=== PATIENT | female | born 1955 | race Caucasian/White ===

== ENCOUNTER 2016-06-25 06:07 | Day surgery (SDC) | payer OTHER ==
[2016-06-25] MEDS ORDERED: LIDOCAINE 1% 5 ML SDV ONE (06:41)
[2016-06-25] MEDS ORDERED: BUPIVACAINE 0.5% 30 ML SDV ONE (06:55)
[2016-06-25] MEDS ORDERED: LIDOCAINE 1% 30 ML SDV ONE (07:13)
[2016-06-25] MEDS ORDERED: MIDAZOLAM 2 MG/2 ML VIAL ONE (07:20)
[2016-06-25] MEDS ORDERED: LIDOCAINE 1% 5 ML SDV ID PRN (07:21)
[2016-06-25] MEDS ORDERED: LR 1,000 ML IV ONE (07:21)
[2016-06-25] MEDS ORDERED: fentaNYL 100 MCG/2 ML INJ ONE (07:30)
[2016-06-25] MEDS ORDERED: PROPOFOL/EMULSION 500 MG/50 ML BOTTLE IV ONE (07:31)
--- NOTE | 2016-06-25 09:10 | GOP ---
DATE OF OPERATION: 06/25/2016 SURGEON: Bora Meza MD PREOPERATIVE DIAGNOSIS: Left carpal tunnel syndrome. POSTOPERATIVE DIAGNOSIS: Left carpal tunnel syndrome. PROPOSED OPERATION: Open left carpal tunnel release. FINDINGS: INDICATIONS: Very significant symptoms of numbness, tingling in the median distribution left hand. Some weakness and decreased coordination. EMG and nerve conduction study showed severe carpal tunnel syndrome on the left side. It was felt that surgical release at this point was a good option for her. DESCRIPTION OF PROCEDURE: Under local infiltration block with 0.5% plain Marcaine and with monitored anesthesia care and sedation by anesthesiology, the patient's left arm was prepped and draped in the usual fashion. Arm tourniquet applied at 250 mmHg. Longitudinal incision was made from the mid palm to the heel of the palm. Skin and subcutaneous tissue was reflected and one sensory branch of the palmar cutaneous nerve was identified and protected. Palmar fascia and transverse carpal ligament were released longitudinally and distal forearm fascia was released by passing a Metzenbaum scissors under the skin at the distal forearm after first bringing up overlying and underlying structures. The median nerve was erythematous and hour glassed under the transverse carpal ligament. The ligament was notably thickened. Once the release had been performed, distal branches were inspected. There was no entrapment there, and proximally in the forearm there was no evidence of pathology. Wound was irrigated with 0.5% plain Marcaine. Skin closed with horizontal mattress sutures of 5-0 Prolene. A bulky soft pressure dressing was applied followed by power base fiberglass splint, held in place with an Yaya bandage. She tolerated the procedure well. There were no complications. Tourniquet deflation resulted in immediate pinking of the digits. She was brought to the recovery area where detailed postoperative instructions were given prior to discharge. A prescription for Percocet and Keflex was provided. She takes Percocet on a regular basis and this was some additional Percocet for increased pain from postoperative symptoms. Followup arrangements in the office for about a week postop for dressing and suture removal and remobilization exercises with a Velcro strap splint to be worn at night for a month and as need be during the day. /[id number]/MODL MTDD
== END 2016-06-25 10:35 | disposition home or self-care (01) ==
LOC: FSGY 06:07
PROVIDERS: ATTEND Specialist
PROC: 01N50ZZ Release Median Nerve, Open Approach (ICD-10-PCS; principal; 2016-06-25 07:30)
DX: G56.02 Carpal tunnel syndrome, left upper limb (principal); K21.9 Gastro-esophageal reflux disease without esophagitis
CPT/HCPCS: J2250; J2704; J3010

== ENCOUNTER → 2016-09-17 | Outpatient (CLI) | payer OTHER | LOC: FIMAGING 10:13 | PROVIDERS: ATTEND Internal Medicine | DX: D25.1 Intramural leiomyoma of uterus (principal); D25.2 Subserosal leiomyoma of uterus; N95.0 Postmenopausal bleeding ==

== ENCOUNTER → 2016-10-05 | Outpatient (CLI) | payer OTHER | LOC: FIMAGING 14:54 | PROVIDERS: ATTEND Nurse Practitioner | DX: Z98.1 Arthrodesis status (principal); M54.2 Cervicalgia; Z09 Encounter for follow-up examination after completed treatment for conditions other than malignant neoplasm ==

== ENCOUNTER → 2016-10-06 | Outpatient (CLI) | payer OTHER | LOC: FLAB 11:58 → EDSTATUS 12:02 → FIMAGING 12:05 | PROVIDERS: ATTEND Nurse Practitioner | DX: M51.34 Other intervertebral disc degeneration, thoracic region (principal); Z98.1 Arthrodesis status ==

== ENCOUNTER → 2016-11-23 | Outpatient (CLI) | payer OTHER | LOC: FIMAGING 15:09 | PROVIDERS: ATTEND Internal Medicine | DX: Z12.31 Encounter for screening mammogram for malignant neoplasm of breast (principal); Z09 Encounter for follow-up examination after completed treatment for conditions other than malignant neoplasm | CPT/HCPCS: G0202 ==

== ENCOUNTER → 2017-04-06 | Outpatient (CLI) | payer OTHER | LOC: FLAB 14:38 | PROVIDERS: ATTEND Nurse Practitioner | DX: Z09 Encounter for follow-up examination after completed treatment for conditions other than malignant neoplasm (principal); Z98.1 Arthrodesis status; M51.34 Other intervertebral disc degeneration, thoracic region ==

== ENCOUNTER → 2017-05-11 | Outpatient (CLI) | payer OTHER | LOC: FIMAGING 19:28 | PROVIDERS: ATTEND Neurological Surgery | DX: M54.2 Cervicalgia (principal); M40.12 Other secondary kyphosis, cervical region; M43.22 Fusion of spine, cervical region ==

== ENCOUNTER → 2017-06-09 | Outpatient (CLI) | payer OTHER | LOC: FIMAGING 13:55 | PROVIDERS: ATTEND Physician Assistant | DX: M48.02 Spinal stenosis, cervical region (principal); M46.92 Unspecified inflammatory spondylopathy, cervical region ==

== ENCOUNTER 2017-10-27 17:28 | Emergency (ER) | payer OTHER ==
[2017-10-27] MEDS ORDERED: ACETAMINOPHEN 500 MG TAB PO ONE (18:16)
[2017-10-27] MEDS ORDERED: DIAZEPAM 5 MG TAB PO ONE (18:16)
--- NOTE | 2017-10-27 19:57 | EDPHY ---
H & P Time Seen by Provider: 10/27/17 18:07 HPI/ROS: This patient was trying out air mattresses 5 days ago and when she pushed up off the floor she developed abrupt onset of biceps pain that radiated up to the shoulder. This was sharp in nature moderate intensity and thereafter she had mild to moderate pain at the biceps and right shoulder area. 3 days prior to arrival for getting that she had injured the arm she lifted a cooler full of sodas and felt abrupt worsening in a tearing feeling in the same area-right biceps. Today without any recurrent injury she noted significant swelling, ecchymosis and increase in pain to 6 or 7/10 to the right biceps region radiating to the right shoulder and into the right trapezium. At 1:00 p.m. She took an oxycodone which improved the pain to 5/10. Concerned about potential DVT or other complication she came in for evaluation. She arrived here by private vehicle with a friend. ROS: Neuro: Patient has baseline paresthesias to the right arm that she attributes to her cervical spine disease that is baseline unchanged. No new neuro symptoms knee affected upper extremity. Musculoskeletal: No new midline neck pain. Pulmonary: No complaints-no shortness of breath 5 point ROS is otherwise negative. 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 General: No acute distress HEENT: Atraumatic. Eyes: Pupils equal and react to light. Extraocular motions are intact. Lungs: No respiratory distress. Cardiac: Brisk capillary refill is intact throughout. Pulses are 2+ and symmetric in the affected extremity. Skin: No rash or pallor. Extremities: Atraumatic normal except for right upper extremity Right upper extremity: Patient has moderate ecchymosis and focal swelling to the mid biceps area. He has mild weakness to flexion of the right arm and increase in pain when she does so. She also has tenderness and mild spasm to the right trapezius muscle. No focal tenderness at the right shoulder limitation range of motion of the shoulder. Neuro: Alert and oriented x3 with no sensorimotor deficits in the affected upper extremity. Initial differential diagnosis: Biceps tendon tear, biceps muscle tear, post traumatic hematoma, posttraumatic DVT Constitutional: Initial Vital Signs Temperature (C) 37.1 C 10/27/17 17:35 Heart Rate 74 10/27/17 17:35 Respiratory Rate 18 10/27/17 17:35 Blood Pressure 179/88 H 10/27/17 17:35 O2 Sat (%) 96 10/27/17 17:35 O2 Delivery Mode Room Air Allergies/Adverse Reactions: cefaclor [From Ceclor] Allergy (Intermediate, Verified 10/27/17 17:39) Hives nalbuphine HCl [From Nubain] Allergy (Intermediate, Verified 10/27/17 17:39) Other-Enter Comments promethazine HCl [From Phenergan] Allergy (Intermediate, Verified 10/27/17 17:39 ) Anxiety Home Medications: Medication Instructions Recorded Fluoxetine HCl [Prozac 40 mg] 40 mg PO DAILY 01/09/15 oxyCODONE IR [Oxycodone Ir (*)] 5 mg PO TID PRN 02/21/15 Estradiol [Vivelle-Dot 0.025MG (*)] 0.025 mg TD SA@08 03/16/15 Aygestin 1 patch 08/23/15 Cyanocobalamin 1 unit IM 08/23/15 FOLIC ACID 400 mg 06/05/16 GABAPENTIN 1 tab TID 06/05/16 Pantoprazole Sodium 1 tab DAILY 06/05/16 Meloxicam 10/27/17 Methocarbamol [Robaxin 750 mg (*)] 750 - 1,500 mg PO QID PRN #30 tab 10/27/17 VENLAFAXINE HCL 10/27/17 MDM/Departure - MDM Imaging Results: Imaging Impressions Extremity Venous Study 10/27/17 18:17 Impression: No evidence of vein thrombosis in the right arm. Results called and discussed with MORENITA LUCAS M.D. on 10/27/2017 at 19:48. Imaging: Discussed imaging studies w/ call or contact centre operator Radiologist Medications Given: Discontinued Medications Acetaminophen (Tylenol) 1,000 mg PO EDNOW ONE Stop: 10/27/17 18:17 Last Admin: 10/27/17 18:25 Dose: 1,000 mg Diazepam (Valium) 5 mg PO EDNOW ONE Stop: 10/27/17 18:17 Last Admin: 10/27/17 18:26 Dose: 5 mg ED Course/Re-evaluation: Tylenol, Valium with pain diminish to 3 or 4/10. Yaya wrap I counseled patient regarding ultrasound negative for DVT and counseled regarding biceps tendon/muscle tear. Discussion: This patient likely had a partial biceps tear 5 days ago that she completed 3 days ago while lifting another object. Today she developed more swelling and pain likely from hematoma. We ruled out DVT. She is neurovascularly intact without other red flag findings. I counseled regarding her injury in some detail. We placed an Yaya wrap. Will have her follow up with Orthopedics and limit lifting in the meantime. She will use ice, ibuprofen , Tylenol and methocarbamol as needed for pain as well as her current script that she has for oxycodone for her chronic pain. She understands the need to return emergency department should she develop any significant worsening despite the treatment plan. - Depart Disposition: Home, Routine, Self-Care Clinical Impression: Tear of right biceps muscle Qualifiers: Encounter type: initial encounter Qualified Code(s): S46.211A - Strain of muscle, fascia and tendon of other parts of biceps, right arm, initial encounter Condition: Good Instructions: Tendon Rupture (ED) Additional Instructions: Diagnosis: Biceps tendon and/or muscle tear right arm You had an ultrasound today that ruled out deep venous thrombosis. Plan: Ice 20 min at a time at least 3 times a day but preferably more until the swelling is diminished. Yaya wrap when up and about No lifting with the right arm Call the orthopedic physician tomorrow to arrange follow-up appointment for early next week. Continue ibuprofen, methocarbamol and Tylenol for pain control. Return for any significant worsening despite the treatment plan. Stand Alone Forms: Work Excuse Prescriptions: Methocarbamol [Robaxin 750 mg (*)] 750 - 1,500 mg PO QID PRN #30 tab PRN Reason: Muscle Spasms Referrals: Oumou Beauchamp MD [Primary Care Provider] - As per Instructions Refugio Don MD [Medical Doctor] - As per Instructions
[2017-10-27 20:06] VITALS: BP 175/94
== END 2017-10-27 20:06 | disposition home or self-care (01) ==
LOC: CED 17:28
DX: S46.211A Strain of muscle, fascia and tendon of other parts of biceps, right arm, initial encounter (principal); X50.0XXA Overexertion from strenuous movement or load, initial encounter
CPT/HCPCS: 93971-PO

== ENCOUNTER → 2017-11-09 | Outpatient (CLI) | payer OTHER | LOC: FIMAGING 09:35 | PROVIDERS: ATTEND Physician Assistant | DX: M66.821 Spontaneous rupture of other tendons, right upper arm (principal); M75.81 Other shoulder lesions, right shoulder; M25.511 Pain in right shoulder ==

== ENCOUNTER → 2018-01-13 | Outpatient (CLI) | payer OTHER | LOC: CIMAGING 09:47 | PROVIDERS: ATTEND Internal Medicine | DX: Z12.31 Encounter for screening mammogram for malignant neoplasm of breast (principal) ==

== ENCOUNTER 2018-03-18 13:17 | Inpatient (IN) | payer OTHER ==
[2018-03-18] MEDS ORDERED: methylPREDNISolone SOD SUCC 125 MG/2 ML VIAL ONE (14:04)
[2018-03-18] MEDS ORDERED: fentaNYL 100 MCG/2 ML INJ ONE (14:04)
[2018-03-18] MEDS ORDERED: KETOROLAC 30 MG/1 ML SDV ONE (14:04)
--- NOTE | 2018-03-18 14:06 | EDPHY ---
H & P Time Seen by Provider: 03/18/18 13:30 HPI/ROS: CHIEF COMPLAINT: Neck pain HISTORY OF PRESENT ILLNESS: Patient is a 62-year-old female who presents to the emergency department with neck pain radiating down her right arm. The patient states she fell Wednesday, landing forward on her knees and hands. She felt a slight jar in her low back with the fall. She denied any neck pain. She did not strike her head or lose consciousness. She subsequently developed right lateral neck pain extending down her right arm. She describes it as a burning sensation. Patient has previously had a C3 through C6 fusion. She has seen Dr. Whiting for ongoing right arm tingling. He states that disc space below the fusion is having some compression. The patient has no low back pain. No incontinence of urine or stool. REVIEW OF SYSTEMS: 10 systems were reveiwed and are negative with the exception of the elements mentioned in the history of present illness. Past Medical/Surgical History: Includes back pain, neck pain, hiatal hernia, H pylori Past surgical history: Cholecystectomy, orthopedic surgery, cervical fusion, thoracic fusion Smoking Status: Never smoked Physical Exam: Vitals noted GENERAL: Well-appearing, in no acute distress, alert. HEENT: Eyes normal to inspection, normal pharynx, no signs of dehydration. NECK: Normal, supple. No tenderness to palpation. No bruit. RESPIRATORY: Clear to auscultation bilaterally, no rales, rhonchi or wheezing. CVS: Regular rate and rhythm, no rubs, murmurs, or gallops. ABDOMEN: Soft, nontender, nondistended, no organomegaly. BACK: Normal to inspection, no CVA tenderness. SKIN: Normal color, no rash, warm, dry. No pallor. EXTREMITIES: No pedal edema, no calf tenderness, no Homans sign or cords, no joint swelling. NEURO/PSYCH: Alert and oriented, normal mood and affect, normal motor sensory exam. No obvious cranial nerve deficit. Constitutional: Initial Vital Signs Temperature (C) 37.1 C 03/18/18 13:30 Heart Rate 101 H 03/18/18 13:30 Respiratory Rate 18 03/18/18 13:30 Blood Pressure 187/87 H 03/18/18 13:30 O2 Sat (%) 95 03/18/18 13:30 O2 Delivery Mode Room Air Allergies/Adverse Reactions: cefaclor [From [facility]] Allergy (Intermediate, Verified 10/27/17 17:39) Hives nalbuphine HCl [From Nubain] Allergy (Intermediate, Verified 10/27/17 17:39) Other-Enter Comments promethazine HCl [From Phenergan] Allergy (Intermediate, Verified 10/27/17 17:39 ) Anxiety Home Medications: Medication Instructions Recorded Fluoxetine HCl [Prozac 40 mg] 40 mg PO DAILY 01/09/15 oxyCODONE IR [Oxycodone Ir (*)] 5 mg PO TID PRN 02/21/15 Estradiol [Vivelle-Dot 0.025MG (*)] 0.025 mg TD SA@08 03/16/15 Aygestin 1 patch 08/23/15 Cyanocobalamin 1 unit IM 08/23/15 GABAPENTIN 1 tab TID 06/05/16 Pantoprazole Sodium 1 tab DAILY 06/05/16 Meloxicam 10/27/17 Methocarbamol [Robaxin 750 mg (*)] 750 - 1,500 mg PO QID PRN #30 tab 10/27/17 VENLAFAXINE HCL 10/27/17 oxyCODONE/APAP 5/325 [Percocet 1 - 2 tab PO Q4PRN PRN #11 tab 03/18/18 5/325 (*)] predniSONE 20 mg PO DAILY 4 Days tab 03/18/18 Medical Decision Making ED Course/Re-evaluation: In the emergency department I discussed possible etiologies with the patient. I answered all her questions. Patient has ongoing neck pain radiating down her right arm. MRI of her cervical spine was ordered. Patient was given Toradol 30 mg IV for pain, fentanyl 25 mcg IV for pain and Solu-Medrol 125 mg IV for pain. 1445: The patient is complaining of ongoing right lateral neck and right arm pain. The patient was given fentanyl 100 mcg IV. 1500: The patient is signed out to Dr. Singh at change of shift. The patient is awaiting MRI results. Differential Diagnosis: My differential includes but is not limited to disc herniation, cervical strain , mass, malignancy, hematoma, CVA, dissection - Data Points Medications Given: Discontinued Medications Fentanyl (Sublimaze) 25 mcg IVP EDNOW ONE Stop: 03/18/18 14:10 Last Admin: 03/18/18 14:26 Dose: 25 mcg Sodium Chloride (Ns) 1,000 mls @ 3,000 mls/hr IV ONCE ONE Stop: 03/18/18 14:28 Last Admin: 03/18/18 14:14 Dose: 1,000 mls Ketorolac Tromethamine (Toradol) 30 mg IVP EDNOW ONE Stop: 03/18/18 14:11 Last Admin: 03/18/18 14:20 Dose: 30 mg Methylprednisolone Sodium Succinate (Solu-Medrol) 125 mg IVP EDNOW ONE Stop: 03/18/18 14:11 Last Admin: 03/18/18 14:26 Dose: 125 mg Ondansetron HCl (Zofran) 4 mg IVP EDNOW ONE Stop: 03/18/18 14:10 Last Admin: 03/18/18 14:27 Dose: 4 mg Departure - Departure Disposition: Home, Routine, Self-Care Clinical Impression: Neck pain Condition: Good Instructions: Acute Neck Pain (ED) Additional Instructions: Return with increasing pain, weakness, numbness or any other concerns. Take your entire course of steroid. Referrals: Oumou Beauchamp MD [Primary Care Provider] - 5-7 days, call for appt. Laurent Whiting MD [Medical Doctor] - 5-7 days, call for appt. Prescriptions: oxyCODONE/APAP 5/325 [Percocet 5/325 (*)] 1 - 2 tab PO Q4PRN PRN #11 tab PRN Reason: For Moderate To Severe Pain predniSONE 20 mg PO DAILY 4 Days tab
[2018-03-18] MEDS ORDERED: ONDANSETRON 4 MG/2 ML VIAL ONE (14:07)
[2018-03-18] MEDS ORDERED: fentaNYL 100 MCG/2 ML INJ IVP ONE ×3 (14:09→16:11)
[2018-03-18] MEDS ORDERED: ONDANSETRON 4 MG/2 ML VIAL IVP ONE (14:09)
[2018-03-18] MEDS ORDERED: NS 1,000 ML IV ONE ×2 (14:09→16:39)
[2018-03-18] MEDS ORDERED: KETOROLAC 30 MG/1 ML SDV IVP ONE (14:10)
[2018-03-18] MEDS ORDERED: methylPREDNISolone SOD SUCC 125 MG/2 ML VIAL IVP ONE (14:10)
[2018-03-18] MEDS ORDERED: HYDROmorphONE/DILAUDID 2 MG/ML INJ IVP ONE (16:39)
[2018-03-18 16:45] LABS: PLATELET COUNT 250 10^3/uL (150-400)
[2018-03-18] MEDS ORDERED: HYDROmorphONE/DILAUDID 1 MG/ML INJ ONE (17:52)
[2018-03-18] MEDS ORDERED: HYDROmorphONE/DILAUDID 1 MG/ML INJ IVP ONE (17:54)
--- NOTE | 2018-03-18 18:06 | PDGENHP ---
History and Physical History and Physical: CC: radicular neck pain HISTORY: This patient comes into the ER today with right arm radicular pain including neuropathic pains that are acute over the last 3-4 days and worsening significantly today. She has a long history of spine disease with 2 prior lumbar surgeries and effusion in the upper cervical spine. She has had ongoing neck pain and has been following with Dr. Ky Whiting her surgeon who has told her she will likely need future fusion surgery in the lower cervical spine. Notably just recently she had a facet joint injection on the left cervical spine for some localized pain there. She also tells me that 2 weeks ago she tripped and fell landing on her left ribcage and has some mildly sore ribs there. 6 days ago she tripped again on an uneven curb and landed on her outstretched hands in front of her, wrenching her neck a bit. She has had some tight muscles in the upper thoracic spine area since then. And now the onset of radicular pain comes from the lower neck area across the upper trapezius and lateral shoulder down the back of her arm into her mid hand area. She has burning tingling and itching sensations involved in this pain. If she turns her head to the right and looks down the pain is exacerbated. She has noticed no weakness and no actual numb areas. There is no fever or fever like symptoms. She has no trouble with bowel or bladder function, is eating well. ROS: She recently had a cough that has resolved completely with no dyspnea or fevers. 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 I have reviewed the list and ordered appropriate medicines. 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, no focal weakness IV site: looks normal LABORATORY DATA: unremarkable cbc and metabolic panel RADIOLOGY STUDIES: I reviewed images of MRI cspine done tonight in ER, shows new severe disc disease with C6-7 severe canal stenosis and foramenal stenosis 12 LEAD EKG: ASSESSMENT: * Severe acute radicular Cervical pain with new disc disease on MRI consistent with the anatomy of her pain * Multiple prior spine surgeries including an upper cervical fusion * Currently no loss of sensation or strength * Hypertension on admission to the ER is likely due to pain and anxiety, it is improving spontaneously and will need close follow-up here It may be that she is having muscle spasm related to her recent falls that is contributing to some postural changes of the spine increasing nerve entrapment and symptoms. However she does have significant disc disease. She is hoping to avoid surgery. Will plan on starting with some oral steroids, muscle relaxers, and analgesics along with anti-inflammatories and see how much progress he makes. Could consider an epidural steroid injection. If she does not progress she can always consider a surgery but there is no urgent indication for surgery at this moment. Dr. Tatum from the neurosurgery service has been notified of the patient's admission PLANS: * Inpatient admission as I expect it will be more than 48 hr before we get adequate pain control in this patient * Oral steroids have been started in the ER, will use nonsteroidals, muscle relaxers, analgesics as well * Consider epidural steroid injection of the next couple of days if she does not have significant improvement * Neurosurgery consult is requested by the ER staff * Continue her other usual medications * Follow blood pressures closely and consider additional treatment if necessary I have reviewed the patient's case in detail with Dr. Anson Rooney I have reviewed the patient's past medical records as part of this assessment, including prior hospital admission records
[2018-03-18] MEDS ORDERED: ONDANSETRON 4 MG/2 ML VIAL IVP PRN (18:13)
--- NOTE | 2018-03-18 20:00 | GCON ---
DATE OF CONSULTATION: 03/18/2018 Patient was seen and evaluated at approximately 6:30 p.m. in the ER at [facility]. HPI: The patient is a 62-year-old woman who was a patient of my partner, Dr. Whiting. In 2013, he di d a C4 corpectomy, C5-6 ACDF, and C4-C6 anterior spinal fusion. Since that time, she has done fairly well, but has had continued neck pain. Most recently in April, she had a CT scan, which shows a p seudoarthrosis at C5-6 with some loosening of the C6 screws. She also has a bit of spondylolisthesis at the adjacent level of C6-7. She notes that she has had numbness and tingling in the right arm in a C8 distribution for about the past 3 months. She was visiting her family in [place] and had a fall earlier this week and now has had severe pain in the neck, trapezius, and radiating down the lateral aspect of the right arm to the dorsal forearm and to the 4th and 5th digits. This burning pain has b een severe enough that it caused her to come to the emergency department today. She did not have any notable neurologic deficits, although she states that she has been dropping things for the past yolanda ral months with both hands and has had difficulty with her balance, has been tripping over things. A new MRI was done here, which again shows spondylolisthesis at C6-7 with severe adjacent segment dise ase and severe canal stenosis with bilateral foraminal stenosis. REVIEW OF SYSTEMS: A 10-point review of systems is negative other than that described above in the H PI. PAST MEDICAL HISTORY: 1. Coronary artery disease by angiography in 2011. 2. Osteoarthritis. 3. Vitamin B12 deficiency. 4. Anxiety disorder. 5. Depression. 6. Hypertension. 7. Peripheral neuropathy. 8. Previous cervical spine fusion. FAMILY HISTORY: The family history is positive for: 1. Coronary artery disease. 2. Hypertension. 3. Hyperlipidemia. 4. Throat cancer. 5. Diabetes. 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 She denies any tobacco or illicit drug use. She uses very little social alcohol. ALLERGIES: 1. Ceclor. 2. Nalbuphine. 3. Promethazine. HOME MEDICATIONS: 1. Fluoxetine. 2. Oxycodone. 3. Estradiol. 4. Aygestin. 5. Vitamin B12. 6. Gabapentin. 7. Pantoprazole. 8. Meloxicam. 9. Robaxin. 10. Venlafaxine. 11. Prednisone. PHYSICAL EXAM: VITAL SIGNS: Currently she is afebrile with normal stable vital signs. GENERAL: Anjel anguiano is awake, alert, and oriented x3. NEURO: Cranial nerves 2-12 are grossly normal. MUSCULOSKELETAL : She has 5/5 motor strength of the deltoid, biceps, triceps, wrist flexion and extension, metal plater bila terally. In the lower extremities, she has 5/5 strength at the hip flexors, extensors, knee flexors, extensors, and plantar and dorsiflexion. Her sensation is grossly normal to light touch throughout the arms and legs. She has brisk reflexes at the elbows and a positive Dennis's in both hands. In the lower extremities, her reflexes at the knees are mute as she has had bilateral knee surgery, but she does have sustained clonus on the left foot and about 7 beats of clonus on the right foot. The B abinski is rather mute, but her toes may be slightly upgoing. IMAGING REVIEW: See HPI. ASSESSMENT/PLAN: The patient is a 62-year-old woman with a prior C4 corpectomy, C5-6 ACDF, and C3-C6 anterior spinal fusion. She presents now with worsening of her known severe adjacent segment diseas e at C6-7 with severe canal and bilateral foraminal stenosis at C6-7. By examination, she is myelopa thic with severe right arm radiculopathy. I have reviewed all of her films and by her old CT from [facility] of this year, she has what appears to be a relatively stable pseudoarthrosis at C5-6 with loose juan of the screws at C6 as well. The remaining portion of her fusion appears to be quite stable, al though it does appear there may have been some pistoning of the corpectomy graft into the C5 vertebra l body. I discussed with her the options, but I really do not see many other options than surgical c orrection of this problem. Unfortunately, this would need to involve a C6-7 anterior cervical diskec michelle and fusion followed by a posterior spinal fusion from C3-T1. I explained to her what all the marr rgery would entail and it is obviously a larger procedure than she has had previously. It would be i mportant to lock her together in the back given that she already has a pseudoarthrosis at C5-6 and he r likely poor bone quality. I do not think that this is an emergent operation, but given the signs o f myelopathy, I would do it sooner rather than later. I did offer to schedule this for her tomorrow morning. However, she really would prefer to have Dr. Whiting do this if possible as he was her prior surgeon. I will discuss this with Dr. Whiting and see what his availability might be to do her surge ry for her and if he does not have availability, then I would be more than happy to reschedule her at another time. For now, she is admitted to the Internal Medicine service and they will pursue pain c ontrol for her. We will follow along closely and keep the primary service abreast of any surgical de velopments. Thanks for the kind consultation. /[id number]/MODL
[2018-03-18] MEDS: HYDROmorphONE/DILAUDID 4 MG TAB PO PRN (20:26)
[2018-03-18] MEDS: GABAPENTIN 300 MG CAP PO SCH (20:27)
[2018-03-18] MEDS: oxyCODONE IR 5 MG TAB PO PRN (21:30)
[2018-03-18] MEDS: METHOCARBAMOL 750 MG TAB PO SCH (21:36)
[2018-03-18] MEDS: MELATONIN 3 MG TAB PO SCH (21:37)
[2018-03-18] MEDS: HEPARIN 5,000 UNIT/0.5 ML INJ SC SCH (21:37)
[2018-03-18] MEDS: ESTRADIOL VIVELLE 0.05 MG PATCH TD SCH (21:41)
[2018-03-18] MEDS: LIDOCAINE 4%/MENTHOL 1% PATCH TD PRN (21:49)
[2018-03-19] MEDS: ZOLPIDEM TARTRATE 5 MG TAB PO PRN ×2 (00:36→22:26)
[2018-03-19] MEDS: HYDROmorphONE/DILAUDID 4 MG TAB PO PRN (00:36)
[2018-03-19] MEDS: HEPARIN 5,000 UNIT/0.5 ML INJ SC SCH ×3 (05:35→22:22)
--- NOTE | 2018-03-19 06:19 | PDMN ---
Medical Necessity Medical necessity: Pt meets inpt criteria per MD order and [facility] M-63, Back Pain. 62 y/o w/hx spine disease w/prior spine surgeries presented w/severe pain in neck, trapezius, and radiating down R arm to hand, hypertension and tachycardia. MRI shows spondylolisthesis at C6-7 w/severe adjacent segment disease and severe canal stenosis w/bilat foraminal stenosis. Neurosurgery consult, surgery likely needed, pain management, anticipate>2MN for ongoing eval /management of above.
[2018-03-19] MEDS: FLUoxetine 20 MG CAP PO SCH (08:32)
[2018-03-19] MEDS: CHOLECALCIFEROL VIT D3 2,000 UNITS TAB/CAP PO SCH (08:32)
[2018-03-19] MEDS: PANTOPRAZOLE SODIUM 40 MG TAB PO SCH (08:32)
[2018-03-19] MEDS: GABAPENTIN 300 MG CAP PO SCH ×3 (08:32→22:25)
[2018-03-19] MEDS: VENLAFAXINE XR 150 MG CAP PO SCH (08:32)
[2018-03-19] MEDS: predniSONE 20 MG TAB PO SCH (08:33)
[2018-03-19] MEDS: Meloxicam [Meloxicam] 15 MG PO SCH (08:33)
[2018-03-19] MEDS: METHOCARBAMOL 750 MG TAB PO SCH ×3 (08:33→22:25)
[2018-03-19] MEDS: LIDOCAINE 4%/MENTHOL 1% PATCH TD PRN (08:34)
[2018-03-19] MEDS: oxyCODONE IR 5 MG TAB PO PRN ×3 (08:48→20:38)
--- NOTE | 2018-03-19 09:23 | ASMTCMCOM ---
CM Note CM Note Notes: Chart reviewed by NOEL. Pt lives with life partner Sonia in [place], and has a history of multiple spine surgeries. Pt to have cervical fusion and discectomy in a few days. PT and OT to evaluated post op. Discharge plan TBD. D/C Plan: TBD pending surgery and therapy eval Date Signed: 03/19/2018 09:22 AM Electronically Signed By:Sally Wolf
--- NOTE | 2018-03-19 09:34 | NEUSURGPN ---
Assessment/Plan: 62y/o female with cervical stenosis,pseudoarthrosis myelopathy and right arm pain - Optimize pain management -Discussed with patient C6/7 ACDF with posterior C3-T1 fusion. She is a known patient of Dr. Whiting and would like to await his review. -Continue Q4 hour neuro checks -Please notify NS with any change in neuro/motor exam -Discussed with Dr. Smith Subjective: right arm pain, neck pain Objective: NAD A&Ox3 MAEx4 5/5 and equal in BUE and BLE. Positive bilateral hoffmans and 2- 3beat clonus - Physician Discussed Patient with Dr.: Smith Neurosurgery Physical Exam - Vitals, I&O, Labs I and O 03/18/18 03/19/18 03/20/18 05:59 05:59 05:59 Intake Total 2500 Output Total 802 Balance 1698 Weight 83.915 kg Intake: Oral (ml) 500 IV Infused (ml) 2000 Output: Urine (ml) 802 Toilet 800 Other: Intake Quantity Yes Sufficient Vital Signs Temp Pulse Resp BP Pulse Ox 36.8 C 102 H 17 168/87 H 95 03/19/18 07:16 03/19/18 07:16 03/19/18 07:16 03/19/18 07:16 03/19/18 08:30 ICD10 Worksheet Patient Problems: Problems Problem Status Onset Neck pain Acute Arthrodesis status Acute Cervical radiculitis Acute Cervical stenosis of spine Acute H/O cervical spinal arthrodesis Acute Low back pain Acute Lumbosacral stenosis Acute
--- NOTE | 2018-03-19 16:35 | HOSPPROG ---
Hospitalist Progress Note Assessment/Plan: The patient is a 6-year-old female with PMH DJD C-spine, C-spine surgery who was admitted C spine DJD. This patient is new to me. Reviewed patient's chart/records for this visit. ASSESSMENT/PLAN: Severe C spine DJD with radiculopathy -possible cord compression 2/2 disc bulge (C6-7) -severe neural forminal radiculopathy, multilevel, R > L -anterolisthesis C6-7 Severe pain, 2/2 above RUE weakness/numbness -Continue steroid to help w/ cord swelling/pain. -NSG recs appreciated - considering surgery early next week. Dr. Smith offered to do surgery but pt wants Dr. Whiting to do it bc he has done surgery on her in the past. -prn analgesics. -Continue home meds - restart norethindrone. -ISU. -Activity as tolerated. -PT/OT after surgery. VTE prophylaxis: Heparin Code Status: Full code Status: Inpatient for greater than 2 midnight stay. Disposition: [facility] with discharge sometime after her surgery next week ____ SUBJECTIVE: Today pt feels okay, pain controlled currently. Awaiting surgery. OBJECTIVE: Physical Exam: General: The patient is a female who is alert and in no acute distress. HEENT: normocephalic, extraocular movements intact, conjunctivae clear. Mucous membranes moist. Neck: trachea midline, no visible masses. Abd: soft and nondistended. Musculoskeletal: Normal muscle tone/bulk. Neuro: cranial nerves II XII grossly intact. Psych: Appropriate mood and appropriate affect. Skin: No pallor. No petechiae. Heme/lymph: No peripheral edema at bilateral lower extremities. Labs/Imaging/Other Tests: MRI C spine - C6-7 herniated disc w/ cervical canal stenosis, severe - possible cord compression C6-7 radiculopathy, severe -bilateral C6-7 slight increased anterolisthesis C4-5 severe R forminal stenosis. C5-6 severe R forminal stenosis. Objective: Vital Signs Temp Pulse Resp BP Pulse Ox 36.9 C 87 18 160/84 H 92 03/19/18 15:38 03/19/18 15:38 03/19/18 15:38 03/19/18 15:38 03/19/18 15:38 03/18/18 03/19/18 03/20/18 05:59 05:59 05:59 Intake Total 2500 Output Total 802 Balance 1698 ICD10 Worksheet Patient Problems: Problems Problem Status Onset Neck pain Acute Arthrodesis status Acute Cervical radiculitis Acute Cervical stenosis of spine Acute H/O cervical spinal arthrodesis Acute Low back pain Acute Lumbosacral stenosis Acute
[2018-03-19] MEDS: NORETHINDRONE ACET 5 MG TAB PO SCH (20:36)
[2018-03-19] MEDS: MELATONIN 3 MG TAB PO SCH (20:39)
[2018-03-19] MEDS: PATCH REMOVAL 1 EA PATCH TD SCH (22:28)
[2018-03-19] MEDS ORDERED: LACTULOSE 20 GM/30 ML UDCUP PO PRN (22:51)
[2018-03-19] MEDS ORDERED: BISACODYL 10 MG SUPP PR PRN (22:51)
[2018-03-19] MEDS ORDERED: NORETHINDRONE ACET 5 MG TAB PO ONE (22:54)
[2018-03-19] MEDS: POLYETHYLENE GLYCOL 3350 17 GM PKT PO PRN (23:49)
[2018-03-20] MEDS: HEPARIN 5,000 UNIT/0.5 ML INJ SC SCH (06:26)
[2018-03-20] MEDS: oxyCODONE IR 5 MG TAB PO PRN ×2 (09:35→15:12)
[2018-03-20] MEDS: CHOLECALCIFEROL VIT D3 2,000 UNITS TAB/CAP PO SCH (09:35)
[2018-03-20] MEDS: FLUoxetine 20 MG CAP PO SCH (09:35)
[2018-03-20] MEDS: PANTOPRAZOLE SODIUM 40 MG TAB PO SCH (09:35)
[2018-03-20] MEDS: predniSONE 20 MG TAB PO SCH (09:35)
[2018-03-20] MEDS: SENNOSIDES/DOCUSATE SODIUM TAB PO SCH ×2 (09:36→21:53)
[2018-03-20] MEDS: METHOCARBAMOL 750 MG TAB PO SCH ×3 (09:36→21:58)
[2018-03-20] MEDS: VENLAFAXINE XR 150 MG CAP PO SCH (09:36)
[2018-03-20] MEDS: GABAPENTIN 300 MG CAP PO SCH ×3 (09:36→21:54)
--- NOTE | 2018-03-20 09:36 | NEUSURGPN ---
Assessment/Plan: 62y/o female with cervical stenosis,pseudoarthrosis myelopathy and right arm pain - Optimize pain management -Surgical plan: C6/7 ACDF with posterior C3-T1 fusion. She is a known patient of Dr. Whiting and would like to await his review. -NPO after midnight. Will order presurgery medications. -HOLD any Lovenox or anticoagulation -Continue Q4 hour neuro checks -Please notify NS with any change in neuro/motor exam -Discussed with Dr. Smith Subjective: right arm pain, neck pain Objective: NAD A&Ox3 MAEx4 5/5 and equal in BUE and BLE. - Physician Discussed Patient with Dr.: Smith Neurosurgery Physical Exam - Vitals, I&O, Labs I and O 03/19/18 03/20/18 03/21/18 05:59 05:59 05:59 Intake Total 2500 1700 Output Total 802 Balance 1698 1700 Weight 83.915 kg Intake: Oral (ml) 500 1700 IV Infused (ml) 2000 Output: Urine (ml) 802 Toilet 800 Other: Intake Quantity Yes Sufficient Number of Voids Toilet 2 Vital Signs Temp Pulse Resp BP Pulse Ox 36.8 C 95 14 151/90 H 95 03/20/18 08:00 03/20/18 08:00 03/20/18 08:00 03/20/18 08:00 03/20/18 08:00 ICD10 Worksheet Patient Problems: Problems Problem Status Onset Neck pain Acute Arthrodesis status Acute Cervical radiculitis Acute Cervical stenosis of spine Acute H/O cervical spinal arthrodesis Acute Low back pain Acute Lumbosacral stenosis Acute
[2018-03-20] MEDS: Meloxicam [Meloxicam] 15 MG PO SCH (09:37)
[2018-03-20 10:54] LABS: INR 1.01 (0.83-1.16); PROTIME(PATIENT) 13.5 SEC (12.0-15.0)
--- NOTE | 2018-03-20 11:54 | HOSPPROG ---
Hospitalist Progress Note Assessment/Plan: The patient is a 6-year-old female with PMH DJD C-spine, C-spine surgery who was admitted C spine DJD. ASSESSMENT/PLAN: Severe C spine DJD with radiculopathy -possible cord compression 2/2 disc bulge (C6-7) -severe neural forminal radiculopathy, multilevel, R > L -anterolisthesis C6-7 Severe pain, 2/2 above RUE weakness/numbness -Continue steroid to help w/ cord swelling/pain. prn analgesics. -NSG recs appreciated - considering surgery early next week. Dr. Smith offered to do surgery but pt wants Dr. Whiting to do it bc he has done surgery on her in the past. They are planning for Wednesday afternoon surgery. I have case d/w NSG. -ISU. -Activity as tolerated. -PT/OT after surgery. VTE prophylaxis: putting Heparin on hold per NSG. Add SCDs while in bed. Code Status: Full code Status: Inpatient for greater than 2 midnight stay. Disposition: [facility] with discharge sometime after her surgery next week ____ SUBJECTIVE: Today pt feels okay. Awaiting surgery. OBJECTIVE: Physical Exam: General: The patient is a female who is alert and in no acute distress. HEENT: normocephalic, extraocular movements intact, conjunctivae clear. Mucous membranes moist. Neck: trachea midline, no visible masses. Abd: soft and nondistended. Musculoskeletal: Normal muscle tone/bulk. Neuro: cranial nerves II XII grossly intact. Psych: Appropriate mood and appropriate affect. Skin: No pallor. No petechiae. Labs/Imaging/Other Tests: MRI C spine - C6-7 herniated disc w/ cervical canal stenosis, severe - possible cord compression C6-7 radiculopathy, severe -bilateral C6-7 slight increased anterolisthesis C4-5 severe R forminal stenosis. C5-6 severe R forminal stenosis. Objective: Vital Signs Temp Pulse Resp BP Pulse Ox 36.8 C 95 14 151/90 H 95 03/20/18 08:00 03/20/18 08:00 03/20/18 08:00 03/20/18 08:00 03/20/18 08:00 03/19/18 03/20/18 03/21/18 05:59 05:59 05:59 Intake Total 2500 1700 Output Total 802 Balance 1698 1700 PT 13.5 SEC (12.0-15.0) 03/20/18 10:28 INR 1.01 (0.83-1.16) 03/20/18 10:28 ICD10 Worksheet Patient Problems: Problems Problem Status Onset Neck pain Acute Arthrodesis status Acute Cervical radiculitis Acute Cervical stenosis of spine Acute H/O cervical spinal arthrodesis Acute Low back pain Acute Lumbosacral stenosis Acute
[2018-03-20] MEDS: NORETHINDRONE ACET 5 MG TAB PO SCH (21:52)
[2018-03-20] MEDS: ZOLPIDEM TARTRATE 5 MG TAB PO PRN (21:54)
[2018-03-20] MEDS: MELATONIN 3 MG TAB PO SCH (21:55)
[2018-03-20] MEDS: PATCH REMOVAL 1 EA PATCH TD SCH (22:03)
[2018-03-21] MEDS ORDERED: ceFAZolin 2 GM/DEXTROSE 100 ML IV ONE (07:00)
--- NOTE | 2018-03-21 07:38 | NEUSURGPN ---
Assessment/Plan: Assessment: 62y/o female with C6-7 cervical stenosis,pseudoarthrosis C5-6, myelopathy and right arm pain Plan: - Optimize pain management, patient reports right arm pain now 2/10 following steroids -Surgical plan: C6/7 ACDF with posterior C3-C7 fusion this afternoon with Dr Whiting. Risks and benefits were discussed and consent signed. Patient marked -NPO -HOLD any Lovenox or anticoagulation -Continue Q4 hour neuro checks -Please notify NS with any change in neuro/motor exam -Patient seen by Dr Whiting as well Subjective: Right arm pain improved, impaired balance per patient Objective: AxO x4 MAEx4 5/5 BUE Positive farah bilaterally Neuro Check Frequency: per routine Urinary Catheter in Place: No - Physician Discussed Patient with : Henok Patient Seen by : Henok Neurosurgery Physical Exam - Vitals, I&O, Labs I and O 03/20/18 03/21/18 03/22/18 05:59 05:59 05:59 Intake Total 1700 1200 Balance 1700 1200 Intake: Oral (ml) 1700 1200 Other: Intake Quantity Yes Sufficient Number of Voids Toilet 2 2 Vital Signs Temp Pulse Resp BP Pulse Ox 36.8 C 81 16 161/85 H 94 03/21/18 04:31 03/21/18 04:31 03/21/18 04:31 03/21/18 04:31 03/21/18 04:31 ICD10 Worksheet Patient Problems: Problems Problem Status Onset Neck pain Acute Arthrodesis status Acute Cervical radiculitis Acute Cervical stenosis of spine Acute H/O cervical spinal arthrodesis Acute Low back pain Acute Lumbosacral stenosis Acute
[2018-03-21] MEDS: FLUoxetine 20 MG CAP PO SCH (08:34)
[2018-03-21] MEDS: METHOCARBAMOL 750 MG TAB PO SCH ×3 (08:34→23:43)
[2018-03-21] MEDS: GABAPENTIN 300 MG CAP PO SCH ×2 (08:34→23:27)
[2018-03-21] MEDS: VENLAFAXINE XR 150 MG CAP PO SCH (08:35)
[2018-03-21] MEDS: PANTOPRAZOLE SODIUM 40 MG TAB PO SCH (08:35)
[2018-03-21] MEDS: CHOLECALCIFEROL VIT D3 2,000 UNITS TAB/CAP PO SCH (08:35)
[2018-03-21] MEDS: oxyCODONE IR 5 MG TAB PO PRN (08:35)
[2018-03-21] MEDS: SENNOSIDES/DOCUSATE SODIUM TAB PO SCH ×2 (08:42→23:48)
[2018-03-21] MEDS ORDERED: morphINE SR 15 MG TAB PO ONE (09:38)
[2018-03-21] MEDS: CYANO/VITAMIN B12 1000 MCG/ML VIAL IM SCH (11:41)
[2018-03-21] MEDS ORDERED: CHLORHEXIDINE GLUC HIBICLENS 118 ML BTL TP ONE (11:48)
[2018-03-21] MEDS ORDERED: BACITRACIN 50,000 UNITS/10 ML SYR IRR ONE (11:48)
[2018-03-21] MEDS ORDERED: THROMBIN (BOVINE) 20,000 UNIT VIAL TP ONE (11:48)
[2018-03-21] MEDS ORDERED: BUPIVACAINE/EPI 0.25% 30 ML SDV ONE ×2 (11:48→17:43)
[2018-03-21] MEDS ORDERED: CEFAZOLIN 2 GM/DEXTROSE/100 ML BAG IV ONE (11:50)
[2018-03-21] MEDS ORDERED: LR 1,000 ML IV ONE (11:55)
--- NOTE | 2018-03-21 12:33 | SOAPPROG ---
SOAP Progress Note Assessment/Plan: Assessment: Preop VF check done. B VFs mobile. Mild glottic gap. Would like to see pt back in 4-6 weeks after surgery for rescope, though sooner if has voice or swallowing issues sooner. Full dictation pending Plan: 03/21/18 12:32 Objective: Vital Signs Temp Pulse Resp BP Pulse Ox 36.8 C 86 18 151/96 H 93 03/21/18 11:41 03/21/18 11:41 03/21/18 11:41 03/21/18 11:41 03/21/18 11:41 03/20/18 03/21/18 03/22/18 05:59 05:59 05:59 Intake Total 1700 1200 Balance 1700 1200 PT 13.5 SEC (12.0-15.0) 03/20/18 10:28 INR 1.01 (0.83-1.16) 03/20/18 10:28 ICD10 Worksheet Patient Problems: Problems Problem Status Onset Neck pain Acute Arthrodesis status Acute Cervical radiculitis Acute Cervical stenosis of spine Acute H/O cervical spinal arthrodesis Acute Low back pain Acute Lumbosacral stenosis Acute
[2018-03-21] MEDS ORDERED: MIDAZOLAM 2 MG/2 ML VIAL IVP ONE (12:46)
--- NOTE | 2018-03-21 13:02 | PDANEPAE ---
ANE History of Present Illness ACD and F C6 to 7. Posterior C3 and 7 ANE Past Medical History - Cardiovascular History Hx Hypertension: No Hx Arrhythmias: Yes Hx Chest Pain: No Hx Coronary Artery / Peripheral Vascular Disease: No Hx CHF / Valvular Disease: No Hx Palpitations: No Cardiovascular History Comment: HX OF PVCs. Was on Bystolic, stopped after surg due to low blood pressure, not restarted. - Pulmonary History Hx COPD: No Hx Asthma/Reactive Airway Disease: No Hx Recent Upper Respiratory Infection: No Hx Oxygen in Use at Home: No Hx Sleep Apnea: Yes Sleep Apnea Screening Result - Last Documented: Positive - Neurologic History Hx Cerebrovascular Accident: No Hx Seizures: No Hx Dementia: No Neurologic History Comment: Numbness L hand. - Endocrine History Hx Diabetes: No Hypothyroid: No Hyperthyroid: No - Renal History Hx Renal Disorders: No - Liver History Hx Hepatic Disorders: No - Neurological & Psychiatric Hx Hx Neurological and Psychiatric Disorders: Yes Neurological / Psychiatric History Comment: Anxiety-med. - Cancer History Hx Cancer: No - GI History Hx Gastrointestinal Disorders: Yes Gastrointestinal History Comment: GERD-med. - Other Health History Other Health History: Diffuse arthritis. - Chronic Pain History Chronic Pain: Yes (CHRONIC NECK PAIN) - Surgical History Prior Surgeries: LUMBAR FUSION 02/2015. CERVICAL FUSION 01/2015. Lumbar fusion. L wrist fusion. Bilateral knee plastys. Lumbar laminectomies. L foot fusion. Neuromas both feet. 2 Csections. Bilateral carpal tunnel. Bladder sling. GB removed. ANE Review of Systems Review of systems is: negative Review of Systems: - Exercise capacity METS (RN): 3 METS ANE Patient History - Allergies Allergies/Adverse Reactions: cefaclor [From Ceclor] Allergy (Intermediate, Verified 10/27/17 17:39) Hives nalbuphine HCl [From Nubain] Allergy (Intermediate, Verified 10/27/17 17:39) Other-Enter Comments promethazine HCl [From Phenergan] Allergy (Intermediate, Verified 10/27/17 17:39 ) Anxiety - Home Medications Home medications: home medication list seen and reviewed Home Medications: Fluoxetine HCl [Prozac 40 mg] 40 mg PO DAILY 01/09/15 [Last Taken 03/18/18] oxyCODONE IR [Oxycodone Ir (*)] 5 - 10 mg PO TID PRN 02/21/15 [Last Taken 12:00 10mg] Cyanocobalamin [Vitamin B12 1000MCG/ML (*)] 1,000 mcg IM Q30D 08/23/15 [Last Taken 02/18/18] Gabapentin 300 - 600 mg PO TID 06/05/16 [Last Taken 03/18/18 12:00 600mg] Pantoprazole Sodium [Protonix 40mg (*)] 40 mg PO DAILY 06/05/16 [Last Taken ] Meloxicam 15 mg PO DAILY 10/27/17 [Last Taken 03/18/18] Venlafaxine Xr [Effexor Xr] 150 mg PO DAILY 10/27/17 [Last Taken 03/18/18] Acetaminophen/ASA/Caffeine [Excedrin Tablet (*)] 1 each PO DAILY PRN 03/18/18 [ Last Taken Unknown] Cholecalciferol Vit D3 [Vitamin D3 (*)] 2,000 units PO DAILY 03/18/18 [Last Taken Unknown] Estradiol [Estradiol] 0.05 mg TD TUFR 03/18/18 [Last Taken 03/15/18] Lidocaine [Lidoderm] 1 each TP DAILY PRN 03/18/18 [Last Taken 03/18/18] Methocarbamol [Robaxin 750 mg (*)] 750 - 1,500 mg PO Q4H PRN 03/18/18 [Last Taken 03/18/18] Norethindrone Acetate 2.5 mg PO HS 03/19/18 [Last Taken 03/17/18] - NPO status NPO Status: no food or drink >8 hours NPO Since - Liquids (Date): 03/21/18 NPO Since - Liquids (Time): 08:00 NPO Since - Solids (Date): 03/20/18 NPO Since - Solids (Time): 18:30 - Anes Hx Anes Hx: no prior problems - Smoking Hx Smoking Status: Never smoked Marijuana use: No - Alcohol Use Alcohol Use: Rarely - Family Anes Hx Family Anes Hx: none Family Hx Anesthesia Complications: son-vomiting. ANE Labs/Vital Signs - Labs Result Diagrams: 03/18/18 14:20 03/18/18 14:20 - Vital Signs Blood Pressure: 151/96 Heart Rate: 86 Respiratory Rate: 18 O2 Sat (%): 93 Height: 172.72 cm Weight: 83.915 kg ANE Physical Exam - Airway Mallampati Score: Class 2 Mouth exam: normal dental/mouth exam - Pulmonary Pulmonary: no respiratory distress, no rales or rhonchi - Cardiovascular Cardiovascular: regular rate and rhythym, no murmur, rub, or gallop - ASA Status ASA Status: III ANE Anesthesia Plan Anesthesia Plan: general endotracheal anesthesia Specialized Airway: video laryngoscope
[2018-03-21] MEDS ORDERED: PROPOFOL/EMULSION 500 MG/50 ML BOTTLE IV ONE ×6 (13:27→19:30)
[2018-03-21] MEDS ORDERED: fentaNYL 250 MCG/5 ML INJ ONE ×2 (13:27)
[2018-03-21] MEDS ORDERED: ONDANSETRON 4 MG/2 ML VIAL ONE (13:40)
[2018-03-21] MEDS ORDERED: DEXAMETHASONE 4 MG/ML VIAL ONE (13:40)
[2018-03-21] MEDS ORDERED: ROCURONIUM 50 MG/5 ML VIAL ONE (13:41)
[2018-03-21] MEDS ORDERED: GLYCOPYRROLATE 0.2 MG/1 ML VIAL ONE (13:41)
[2018-03-21] MEDS ORDERED: ONDANSETRON DISINTEGRATING 4 MG TAB PO PRN (14:01)
[2018-03-21] MEDS ORDERED: SUCCINYLCHOLINE CHLORIDE 200 MG/10 ML SYR IVP ONE (14:06)
[2018-03-21] MEDS ORDERED: NS 1,000 ML IV SCH (14:15)
[2018-03-21] MEDS ORDERED: PHENYLEPHRINE HCL 100 MCG/ML SYR ONE (14:54)
[2018-03-21] MEDS ORDERED: ePHEDrine SULFATE 25 MG/5 ML SYR ONE (14:54)
--- NOTE | 2018-03-21 15:16 | HOSPPROG ---
Hospitalist Progress Note Assessment/Plan: The patient is a 62-year-old female with PMH DJD C-spine, C-spine surgery who was admitted with right arm radicular symptoms. This is my first encounter with the patient, chart reviewed. 1. Severe cervical stenosis (C6-7) with RUE myelopathy and pain - symptoms better with steroids - plan for C6-7 ACDF with posterior C3-7 fusion this afternoon with Dr Whiting - pain control - PT/OT after surgery VTE prophylaxis: SCDs in mary-operative setting Code Status: Full code Dispo: Remain inpatient for surgical management Subjective: Attempted to see patient multiple times today unsuccessfully as she was in pre-op and then surgery. Objective: Vital Signs Temp Pulse Resp BP Pulse Ox 36.8 C 86 18 151/96 H 93 03/21/18 11:41 03/21/18 13:03 03/21/18 13:03 03/21/18 13:03 03/21/18 13:03 03/20/18 03/21/18 03/22/18 05:59 05:59 05:59 Intake Total 1700 1200 Balance 1700 1200 PT 13.5 SEC (12.0-15.0) 03/20/18 10:28 INR 1.01 (0.83-1.16) 03/20/18 10:28 ICD10 Worksheet Patient Problems: Problems Problem Status Onset Neck pain Acute Arthrodesis status Acute Cervical radiculitis Acute Cervical stenosis of spine Acute H/O cervical spinal arthrodesis Acute Low back pain Acute Lumbosacral stenosis Acute
[2018-03-21] MEDS ORDERED: fentaNYL 100 MCG/2 ML INJ ONE ×5 (15:41→22:41)
[2018-03-21] MEDS ORDERED: HYDROmorphONE/DILAUDID 2 MG/ML INJ ONE ×2 (16:33→22:17)
[2018-03-21] MEDS ORDERED: ACETAMINOPHEN 500 MG TAB PO PRN (20:09)
[2018-03-21] MEDS ORDERED: DIAZEPAM 5 MG/ML 1 ML SYR IVP PRN (20:09)
[2018-03-21] MEDS ORDERED: ONDANSETRON 4 MG/2 ML VIAL IVP PRN (20:09)
[2018-03-21] MEDS ORDERED: LABETALOL HCL 20 MG/4 ML INJ IVP PRN (20:09)
[2018-03-21] MEDS ORDERED: NALOXONE HCL 0.4 MG/ML INJ IVP PRN (20:09)
[2018-03-21] MEDS ORDERED: MEPERIDINE 25 MG/0.5 ML AMP IVP PRN (20:09)
--- NOTE | 2018-03-21 20:53 | POSTOPPROG ---
Post Op Note Date of Operation: 03/21/18 Surgeon: Laurent Whiting Advertising Copywriter: Estela Miles NP Anesthesiologist: Dr Douglass Anesthesia: GET(General Endotracheal) Pre-op Diagnosis: Cervical stenosis with myleopathy Procedure: ACDF C6-7, Posterior Cervical fusion C3-7 Inf/Abcess present in the surg proc area at time of surgery?: No Depth: Deep Incisional (Fascial) EBL: 100-500 Total fluids administered: see anesthesia Complications: none Drains: Cuauhtemoc Flannery Date of Surgery: 03/21/18 Post Op Day: 0 Assessment/Plan: Assessment: 62y/o female with C6-7 cervical stenosis,pseudoarthrosis C5-6, myelopathy and right arm pain. 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
[2018-03-21] MEDS ORDERED: morphINE PCA 30 MG/30 ML PCA IV PRN (20:55)
[2018-03-21] MEDS ORDERED: LABETALOL HCL 20 MG/4 ML INJ IVP ONE ×2 (20:59→22:00)
[2018-03-21] MEDS ORDERED: LABETALOL HCL 5 MG/ML 20 ML MDV IVP ONE (21:15)
[2018-03-21] MEDS: HYDROmorphONE/DILAUDID 2 MG/ML INJ IVP PRN ×5 (22:21→22:49)
[2018-03-21] MEDS ORDERED: DIAZEPAM 5 MG/ML 1 ML SYR ONE (22:41)
[2018-03-21] MEDS: fentaNYL 100 MCG/2 ML INJ IVP PRN ×3 (22:43→22:53)
[2018-03-21] MEDS: HYDROmorphONE/DILAUDID 6 MG/30 ML PCA IV PRN (23:18)
[2018-03-21] MEDS: NS 1,000 ML IV SCH (23:18)
[2018-03-21] MEDS: FAMOTIDINE 20 MG TAB PO SCH (23:28)
[2018-03-21] MEDS: ceFAZolin 2 GM/DEXTROSE 100 ML IV SCH (23:37)
[2018-03-21] MEDS: MELATONIN 3 MG TAB PO SCH (23:43)
[2018-03-21] MEDS: NORETHINDRONE ACET 5 MG TAB PO SCH (23:45)
[2018-03-21] MEDS: PATCH REMOVAL 1 EA PATCH TD SCH (23:49)
[2018-03-22] MEDS: diphenhydrAMINE 25 MG CAP PO PRN (01:09)
[2018-03-22] MEDS: oxyCODONE IR 5 MG TAB PO PRN ×2 (04:49→13:39)
[2018-03-22 05:16] LABS: PLATELET COUNT 217 10^3/uL (150-400)
[2018-03-22] MEDS: SCOPOLAMINE HYDROBROMIDE 1 MG/3 DAYS PATCH TD SCH (05:35)
--- NOTE | 2018-03-22 06:46 | GOP ---
DATE OF OPERATION: 03/21/2018 SURGEON: Oumar Whiting MD SWAGE TOOLSETTER: Estela Miles NP. PREOPERATIVE DIAGNOSIS: Severe stenosis with myelopathy at C6-7, prior cervical fusion C3-C6, pseudo arthrosis after fusion at C5-6, auto fusion at C2-3. POSTOPERATIVE DIAGNOSIS: Severe stenosis with myelopathy at C6-7, prior cervical fusion C3-C6, pseud oarthrosis after fusion at C5-6, auto fusion at C2-3. PROCEDURE PERFORMED: Anterior cervical diskectomy with decompression and arthrodesis at C6-[address]ment of biomechanical intervertebral device at C6-7 without an anterior cervical plate using a Zer o-P device at C6-7, same incision bone graft harvest, microscope, removal of anterior cervical instru mentation at C6. FINDINGS: ESTIMATED BLOOD LOSS: 25 cc. INDICATIONS: The patient has a prior history of a cervical corpectomy of C4. There did appear to marr ccessfully fuse C3, C4, C5. She had an ACDF as well at the same time at C5-6 and earlier this year h ad developed some adjacent segment disease and symptoms predominantly in her left arm and when we saw her in May, we discussed with her the need for additional surgery. It is my feeling that she w ould need to have surgery, but she wanted to try to delay and I thought that was a reasonable option. She at the time was informed of the auto fusion of C2 and C3 and she also was informed of the proba ble pseudarthrosis at C5-6 that did not appear to be symptomatic. I suggested an anterior-posterior approach to the spine back in May of this year. Over the , she presented to the hospital with relentless, excruciating, radiating right upper extremity pain and burning to the stages that were unbearable. A lot of this pain improved with some steroids that she received during her hospital stay. An MRI was performed demonstrating severe stenosis at C6-7, that was even worse than it was earlier this year and there was evidence of what appeared to be a probable right-sided di sk herniation at C6-7. She was offered surgery over the iday weekend with my partner but was feel ing better and wanted to put it off. She did not get total improvement and come Wednesday evening, she did want to proceed with surgery on Wednesday with me. We discussed with her the risks of the surgery i ncluding the risk of esophageal injury, carotid injury, recurrent laryngeal nerve injury, dysphagia, pseudarthrosis, the need for additional spine surgery in the future, continued symptoms, spinal cord injury. She knew there were risks but we thought that we could proceed safely. She did want to proc eed. DESCRIPTION OF PROCEDURE: The patient was taken to the operating room, placed in the supine position . General anesthesia was begun. A midline shoulder roll was placed. Care was taken to pad all poin ts of contact. Her arms were tucked at her side. X-rays were taken. It was difficult to visualize the C6-7 level, but we could see the end of the plate at C6. She was sterilely prepped and draped. We made a transverse incision on the left side of the neck. Her vocal cords were moving normally estrada or to surgery and so we went contralateral to the prior surgery. This was discussed with the patient prior to the surgery. We did make left-sided incision using the inferior dominant neck crease. The subcutaneous tissue was dissected using Bovie cautery down through the platysma. We then used a com bination of sharp and blunt dissection to work our way medial to the sternocleidomastoid and lateral to the strap muscle down to the prevertebral space. We encountered her prior plate. We mobilized th e esophagus off the plate. There was some scarring. There was some difficulty mobilizing the esopha yu, but we were able to do it without injury. We exposed the bottom portion of the plate. It was a [employer] plating system. We removed the locking cap on the left-sided lower screw at C6 and removed the screw. It was slightly loose consistent with a pseudoarthrosis but not remarkably loose. There was subluxation between C6 and C7 and to expose C7, we had to dissect the esophagus off C7 in a somew hat blind fashion inferiorly below the large lip of bone that was more proximal in our field of view. We were able to do this but it took some time. We placed a distraction pin in C7 and a distraction pin in the hole that remained from the screw at C6. Distracted it at C6-7, partially reducing the s pondylolisthesis. We then performed a partial diskectomy of the superficial portions of the disk and then introduced the operating microscope. Under the scope, we removed the disk completely and the c artilaginous endplate. We worked our way down the posterior longitudinal ligament where we opened th e PLL and decompressed the dura and indeed inside the spinal canal was a large free fragment disk on the right-hand side, and we were able to remove this completely. We decompressed into the right-side d neural foramen at C6-7. We also performed a left-sided decompression and got a great decompression . We then drilled and harvested subchondral bone at C6-[address] in our implant. We chose a 9 mm P [employer] intervertebral device, the Zero-P device manufactured by [employer], and we got a great fit. It w as their lower profile device. We inserted it at C6-7 and got good capture of the vertebral bodies w ith our screws at C6 and C7. These were locked in place and confirmed with the people in the OR. We then shot an x-ray confirming the position of the device and the position of the screws and we were happy with these. The C6 screw did go right to the posterior edge of the vertebral body but was a gr girish screw. We then achieved meticulous hemostasis. One of the dominant thyroid arteries was present coming off the carotid and crossed in our field, but there was no bleeding from that. We did not co agulate it . We irrigated with antibiotic saline solution and then closed the incision in multiple l stone using Vicryl sutures. Steri-Strips were applied to the skin. This concluded procedure on #1. COMPLICATIONS: None. /[id number]
--- NOTE | 2018-03-22 07:16 | GOP ---
DATE OF OPERATION: 03/21/2018 SURGEON: Oumar Whiting MD NEUROSURGEON: Ky Whiting MD. GRINDER SET UP OPERATOR THREAD: Estela Miles, nurse practitioner. 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 PROCEDURE PERFORMED: Posterior cervical laminectomy at C6-7, with decompression spinal canal, C6-7 p osterior cervical arthrodesis and fusion with instrumentation C3, C4, C5, C6, C7, same incision bone graft harvest, spinal stereotaxy. FINDINGS: ESTIMATED BLOOD LOSS: 250 cc. INDICATIONS: Please see the accompanying operative report for the anterior surgery that was also don e same day for detailed account of the patient's presenting symptoms and her prior medical history. The risks of the posterior surgery including the discomfort associated with posterior surgery was dis cussed. She knew this is a bigger procedure than she had before. She knew there was a chance of scr ew and hardware malposition, malfunction, adjacent segment disease, and recurrent pseudoarthrosis kylee n after instrumentation both anterior and posterior. She wanted to proceed despite the risks procedu re. DESCRIPTION OF PROCEDURE: The patient was already in the operating room for the anterior procedure. At the conclusion of that procedure, she was then placed in the [place] head frame. Care was taken reposition her on the [place] table in the prone position, arms tucked at the side. Her occiput was slightly flexed and the neck was kept neutral. She was sterilely prepped and draped in usual fashio n. Made a midline incision from the spinous process of C2 to the spinous process of T1. The subcuta neous tissue was dissected using Bovie cautery down to the fascia and a subperiosteal dissection was made down to the inferior C2 lamina. The C3, C4, C5, C6, C7 laminae were exposed. We did not expose T1, but the spinous process was palpable. The dissection was deep and now it was somewhat bloodier than normal, but this was easily controlled. Self-retaining retractor was placed. We attached the S tealth reference frame to the spinous process of C7. We decorticated the lateral masses from C3-C7 f or a posterolateral arthrodesis. We performed an O-arm spin and using frame of the Stealth stereotax y, placed pedicle screws bilaterally at C7. The C7 pedicles were cortical, very hard bone, and we we re able to successfully navigate the screws into the pedicles of C7. We then placed lateral mass scr ews bilaterally at C3, C4, and C5. The right lateral mass at C6 was really destroyed by the degenera tive process. There was not much bone to place a screw into and we chose to forego the right lateral mass of C6. The left lateral mass of C6 was much more substantial and I thought we could get a scre w in it, albeit a shorter screw, given its transitional segment between the lateral mass trajectories and the pedicle screw trajectories at C7. We placed the screws and performed an O-arm spin, and all the screws were carefully observed on the O-arm. We also observed our intervertebral device at C6-7 . These screws looked like they were in good position as well. All the lateral mass screws were in excellent position. We then arranged the tulips for the favored angle of the Medtronic Infinity syst em and took rods and increased their bend to fit into these tulips. We distracted somewhat between C 3 and C7 and got further reduction of the C6-7 segment. There was remarkable spondylosis between the m. After the rods were in place, we spent time cleaning up the residual lamina from C3 down to C7. We harvested the complete C4, C5 spinous process for autologous grafting purposes. We harvested the C6 spinous process and the entire lamina for autologous grafting purposes. We harvested the rostral C7 lamina for autologous grafting purposes. The C7, T1 ligaments were preserved. We opened the liga mentum flavum at C6-7 after completely removing the C6 lamina. We decompressed the thecal sac at tiago t level and we even performed bilateral facetectomies and foraminotomies. We did not remove the face t joints per se, but we did work our way into the neural foramen for the exiting C7 nerve roots and d id perform a facetectomy with more work done on the right side than on the left. There was a large a mount of spondylotic tissue on the C7 root on the right-hand side. We got a great decompression. We then decorticated all remaining visible bone, placed our bone autograft and BMP posterolaterally harrison aterally, placed a subfascial drain, and then closed the incision in multiple layers using Vicryl sut ures. The skin was reapproximated with interrupted Vicryl suture. Steri-Strips were applied. A bernice ssing was applied. The patient was then flipped back on the hospital bed and then removed from the [facility] head frame. There were no complications. COMPLICATIONS: None. INSTRUMENTATION USED: Medtronic Infinity posterior cervical instrumentation. We used 2 mg of bone m orphogenic protein and bone autograft only. /[id number]/MODL
[2018-03-22] MEDS: GABAPENTIN 300 MG CAP PO SCH ×3 (07:52→21:03)
[2018-03-22] MEDS: HYDROmorphONE/DILAUDID 4 MG TAB PO PRN ×3 (07:52→16:47)
[2018-03-22] MEDS: METHOCARBAMOL 750 MG TAB PO SCH ×3 (07:53→21:03)
[2018-03-22] MEDS: SENNOSIDES/DOCUSATE SODIUM TAB PO SCH ×2 (07:56→21:03)
[2018-03-22] MEDS: PANTOPRAZOLE SODIUM 40 MG TAB PO SCH (07:57)
[2018-03-22] MEDS: VENLAFAXINE XR 150 MG CAP PO SCH (07:57)
[2018-03-22] MEDS: FLUoxetine 20 MG CAP PO SCH (07:57)
[2018-03-22] MEDS: FAMOTIDINE 20 MG TAB PO SCH ×2 (07:57→21:04)
[2018-03-22] MEDS: CHOLECALCIFEROL VIT D3 2,000 UNITS TAB/CAP PO SCH (07:58)
[2018-03-22] MEDS: ESTRADIOL VIVELLE 0.05 MG PATCH TD SCH (07:59)
[2018-03-22] MEDS: POLYETHYLENE GLYCOL 3350 17 GM PKT PO PRN (07:59)
[2018-03-22] MEDS: ceFAZolin 2 GM/DEXTROSE 100 ML IV SCH (08:00)
[2018-03-22] MEDS: CYANO/VITAMIN B12 1000 MCG/ML VIAL IM SCH (08:09)
--- NOTE | 2018-03-22 08:10 | SOAPPROG ---
SOAP Progress Note Assessment/Plan: Assessment: POD #1 s/p C6/7 ACDF and C3-7 posterior cervial fusion. Doing well with expected post op interscapular pain Right arm/hand paresthesias improved Plan: Continue C Collar Continue ANAMARIA drain PT/OT/ST Activity with assist Xrays today 03/22/18 08:07 Subjective: sitting up in bed, feeling OK. Has expected pain posteriorly. She thinks her right arm/hand paresthesias are improved. Objective: Vital Signs Temp Pulse Resp BP Pulse Ox 36.5 C 80 16 133/85 H 99 03/22/18 07:46 03/22/18 07:46 03/22/18 07:46 03/22/18 07:46 03/22/18 07:46 Laboratory Results 03/22/18 04:37 03/22/18 04:37 03/21/18 03/22/18 03/23/18 05:59 05:59 05:59 Intake Total 1200 4130 Output Total 1660 Balance 1200 2470 PT 13.5 SEC (12.0-15.0) 03/20/18 10:28 INR 1.01 (0.83-1.16) 03/20/18 10:28 Neuro: HAHN, Sens LT A+Ox 4 Dressing CDI ANAMARIA: 160ml ICD10 Worksheet Patient Problems: Problems Problem Status Onset Neck pain Acute Arthrodesis status Acute Cervical radiculitis Acute Cervical stenosis of spine Acute H/O cervical spinal arthrodesis Acute Low back pain Acute Lumbosacral stenosis Acute
[2018-03-22] MEDS: NS 1,000 ML IV SCH (08:15)
[2018-03-22] MEDS: LIDOCAINE 4%/MENTHOL 1% PATCH TD PRN (08:21)
[2018-03-22] MEDS: HYDROmorphONE/DILAUDID 6 MG/30 ML PCA IV PRN (13:40)
[2018-03-22] MEDS: HEPARIN 5,000 UNIT/0.5 ML INJ SC SCH ×2 (14:04→21:04)
--- NOTE | 2018-03-22 14:40 | HOSPPROG ---
Hospitalist Progress Note Assessment/Plan: 62-year-old female with PMH DJD C-spine with prior C-spine surgery who was admitted with right arm radicular symptoms. 1. Severe cervical stenosis (C6-7) with RUE myelopathy and pain - s/p posterior cervical laminectomy at C6-6 and C3-7 fusion - s/p course of steroids prior to surgery - dilaudid CABLE SPLICING TECHNICIAN for pain control, decreasing lockout frequency - bowel regimen - incentive spirometry - PT/OT 2. Left leg weakness: None appreciated on my exam - Continue to work with PT/OT 3. Elevated BP: Noted prior to surgery in setting of pain. Now better. Not on meds. 4. Peripheral neuropathy: Continue home gabapentin. 5. Depression: Home meds. VTE prophylaxis: start LMWH Code Status: Full code Dispo: Remain inpatient in post-op setting Subjective: Right arm pain and numbness are gone. She is having neck pain that is relieved by current dilaudid dose but comes back quickly, wondering if can decrease CABLE SPLICING TECHNICIAN lockout. She hasn't had BM since surgery. Breathing ok. Her friends noted some left leg weakness. Objective: Vital Signs Temp Pulse Resp BP Pulse Ox 36.7 C 84 13 132/66 H 89 L 03/22/18 11:44 03/22/18 14:05 03/22/18 14:05 03/22/18 14:05 03/22/18 14:05 Laboratory Results 03/22/18 04:37 03/22/18 04:37 03/21/18 03/22/18 03/23/18 05:59 05:59 05:59 Intake Total 1200 4130 300 Output Total 1660 225 Balance 1200 2470 75 PT 13.5 SEC (12.0-15.0) 03/20/18 10:28 INR 1.01 (0.83-1.16) 03/20/18 10:28 - Physical Exam Constitutional: no apparent distress, appears nourished, not in pain Eyes: PERRL, anicteric sclera, EOMI Ears, Nose, Mouth, Throat: moist mucous membranes, hearing normal, ears appear normal, no oral mucosal ulcers, other (wearing neck brace) Cardiovascular: regular rate and rhythym, no murmur, rub, or gallop Respiratory: no respiratory distress, no rales or rhonchi, clear to auscultation Gastrointestinal: normoactive bowel sounds, soft, non-tender abdomen, no palpable masses Genitourinary: no bladder fullness, no bladder tenderness, no renal bruits Skin: no rashes or abrasions, no fluctuance, no induration Musculoskeletal: full muscle strength, no muscle tenderness, normal joint ROM Neurologic: AAOx3, sensation intact bilaterally Psychiatric: interacting appropriately, not anxious, not encephalopathic, thought process linear ICD10 Worksheet Patient Problems: Problems Problem Status Onset Neck pain Acute Arthrodesis status Acute Cervical radiculitis Acute Cervical stenosis of spine Acute H/O cervical spinal arthrodesis Acute Low back pain Acute Lumbosacral stenosis Acute
--- NOTE | 2018-03-22 16:07 | ASMTCMCOM ---
CM Note CM Note Notes: Patient had surgery today, 03/22. Attempted to meet with patient to discuss dispo options - patient down getting X-ray. She is doing quite well with therapy and likely will be able to d/c home independently. CM will follow-up with patient when able to confirm. Plan: TBD Date Signed: 03/22/2018 04:06 PM Electronically Signed By:Eleni Pichardo RN
[2018-03-22] MEDS: PATCH REMOVAL 1 EA PATCH TD SCH (21:04)
[2018-03-22] MEDS: MELATONIN 3 MG TAB PO SCH (21:04)
[2018-03-22] MEDS: NORETHINDRONE ACET 5 MG TAB PO SCH (21:04)
[2018-03-23] MEDS: HYDROmorphONE/DILAUDID 4 MG TAB PO PRN ×3 (05:13→17:11)
[2018-03-23] MEDS: METHOCARBAMOL 750 MG TAB PO SCH ×3 (07:18→22:18)
[2018-03-23] MEDS: FAMOTIDINE 20 MG TAB PO SCH ×2 (07:18→22:19)
[2018-03-23] MEDS: FLUoxetine 20 MG CAP PO SCH (07:18)
[2018-03-23] MEDS: CHOLECALCIFEROL VIT D3 2,000 UNITS TAB/CAP PO SCH (07:19)
[2018-03-23] MEDS: POLYETHYLENE GLYCOL 3350 17 GM PKT PO PRN (07:19)
[2018-03-23] MEDS: VENLAFAXINE XR 150 MG CAP PO SCH (07:19)
[2018-03-23] MEDS: SENNOSIDES/DOCUSATE SODIUM TAB PO SCH ×2 (07:19→22:19)
[2018-03-23] MEDS: LIDOCAINE 4%/MENTHOL 1% PATCH TD PRN (07:20)
[2018-03-23] MEDS: GABAPENTIN 300 MG CAP PO SCH ×3 (07:20→22:18)
[2018-03-23] MEDS: ENOXAPARIN 40 MG/0.4 ML SYR SC SCH (07:20)
[2018-03-23] MEDS: PANTOPRAZOLE SODIUM 40 MG TAB PO SCH (07:21)
[2018-03-23] MEDS: HYDROmorphONE/DILAUDID 6 MG/30 ML PCA IV PRN (07:29)
[2018-03-23] MEDS: oxyCODONE IR 5 MG TAB PO PRN ×3 (07:32→22:19)
--- NOTE | 2018-03-23 07:32 | NEUSURGPN ---
Date of Surgery: 03/21/18 Post Op Day: 2 Assessment/Plan: Assessment: POD #2 s/p C6/7 ACDF and C3-7 posterior cervial fusion Plan: -doing well with expected post op interscapular pain -continue with current pain management -pt with some expected swallowing issues, she is eating soft foods at this time- will continue with ST/watch this -right arm/hand paresthesias improved -post op xrays look good -pt seen and evaluated by Dr Whiting as well -continue C Collar -will remove ANAMARIA drain today -PT/OT/ST-CPM -activity with assist -call with any questions or concerns -take medications as directed Subjective: Awake and alert. NAD. Eating/drinking and voiding. No f/c/n/v/d. Objective: AAO x 3, PERRLA/EOMI no droop CN 2-12 grossly intact +lt touch 5/5 BUE/BLE = dresssing CDI ANAMARIA to be removed today Neuro Check Frequency: per routine Urinary Catheter in Place: No - Physician Discussed Patient with : Henok Patient Seen by : Henok Neurosurgery Physical Exam - Vitals, I&O, Labs I and O 03/22/18 03/23/18 03/24/18 05:59 05:59 05:59 Intake Total 4130 1850 Output Total 1660 1175 80 Balance 2470 675 -80 Weight 83.915 kg Intake: Oral (ml) 350 1450 IV Intake (ml) 3000 300 IV Infused (ml) 780 100 Ns 1,000 ml @ 100 mls/hr 680 IV CONT LINDA Rx#: [id number] ceFAZolin 2 GM/DEXTROSE 100 100 100 ml @ 200 mls/hr IV Q8HRS LINDA Rx#:[id number] Output: Urine (ml) 1275 1075 Catheter 775 175 Toilet 500 900 Estimated Blood Loss (ml) 225 ANAMARIA Drain Output (ml) 160 100 80 #1 Posterior Neck 160 100 80 Other: Output Comment Catheter Kaur catheter discontinued. Number of Voids Catheter 1 Toilet 2 Post Void Residual Scan Volume (ml) Catheter 570 Toilet 570 Vital Signs Temp Pulse Resp BP Pulse Ox 36.8 C 95 16 140/77 H 90 L 03/23/18 07:14 03/23/18 07:14 03/23/18 07:14 03/23/18 07:14 03/23/18 07:14 Laboratory Results 03/22/18 04:37 03/22/18 04:37 ICD10 Worksheet Patient Problems: Problems Problem Status Onset Neck pain Acute Arthrodesis status Acute Cervical radiculitis Acute Cervical stenosis of spine Acute H/O cervical spinal arthrodesis Acute Low back pain Acute Lumbosacral stenosis Acute
--- NOTE | 2018-03-23 08:52 | HOSPPROG ---
Hospitalist Progress Note Assessment/Plan: 62-year-old female with PMH DJD C-spine with prior C-spine surgery who was admitted with right arm radicular symptoms. 1. Severe cervical stenosis (C6-7) with RUE myelopathy and pain - s/p posterior cervical laminectomy at C6-6 and C3-7 fusion on 03/[address] Whiting - s/p course of steroids prior to surgery - ANAMARIA drain now removed - continue dilaudid HEATER TENDER, plan to switch to oral regimen tomorrow, discussed with patient - bowel regimen - incentive spirometry - PT/OT 2. Left ankle weakness: Mild with plantarflexion - Continue to work with PT/OT - Consider L-spine imaging once acute issues resolved 3. Mild dysphagia: Somewhat expected after above surgery - Speech therapy 4. Elevated BP: Noted prior to surgery in setting of pain. Now better. Not on meds. 5. Peripheral neuropathy: Continue home gabapentin. 6. Depression: Home meds. VTE prophylaxis: LMWH Code Status: Full code Dispo: Remain inpatient for pain control, continue working with therapies post- op. Current plan is for home in 1-2 days. Subjective: Pain better overall. Some trouble swallowing. Breathing ok. No fevers. Drain removed. Objective: Vital Signs Temp Pulse Resp BP Pulse Ox 36.8 C 95 16 140/77 H 90 L 03/23/18 07:14 03/23/18 07:14 03/23/18 07:14 03/23/18 07:14 03/23/18 07:14 Laboratory Results 03/22/18 04:37 03/22/18 04:37 03/22/18 03/23/18 03/24/18 05:59 05:59 05:59 Intake Total 4130 1850 Output Total 1660 1175 80 Balance 2470 675 -80 PT 13.5 SEC (12.0-15.0) 03/20/18 10:28 INR 1.01 (0.83-1.16) 03/20/18 10:28 - Physical Exam Constitutional: no apparent distress, appears nourished, not in pain Eyes: PERRL, anicteric sclera, EOMI Ears, Nose, Mouth, Throat: moist mucous membranes, hearing normal, ears appear normal, no oral mucosal ulcers, other (wearing neck brace) Cardiovascular: no murmur, rub, or gallop, tachycardia, No JVD, No edema Respiratory: no respiratory distress, no rales or rhonchi, clear to auscultation Gastrointestinal: normoactive bowel sounds, soft, non-tender abdomen, no palpable masses Genitourinary: no bladder fullness, no bladder tenderness, no renal bruits Skin: no rashes or abrasions, no fluctuance, no induration Musculoskeletal: full muscle strength, no muscle tenderness, normal joint ROM Neurologic: AAOx3, sensation intact bilaterally, other (mild weakness with left ankle plantarflexion) Psychiatric: interacting appropriately, not anxious, not encephalopathic, thought process linear ICD10 Worksheet Patient Problems: Problems Problem Status Onset Neck pain Acute Arthrodesis status Acute Cervical radiculitis Acute Cervical stenosis of spine Acute H/O cervical spinal arthrodesis Acute Low back pain Acute Lumbosacral stenosis Acute
--- NOTE | 2018-03-23 11:24 | ASMTCMCOM ---
CM Note CM Note Notes: Today PT rec inpatient rehab, Hospitalist Abigailt input the consult order. CM to follow pt progress. Date Signed: 03/23/2018 11:23 AM Electronically Signed By:NGHIA Hylton
[2018-03-23] MEDS: MAGNESIUM HYDROXIDE 30 ML UDCUP PO PRN (17:22)
--- NOTE | 2018-03-23 17:55 | POSTANESTH ---
Post Anesthetic Evaluation Cardiovascular Status: Normal, Stable Respiratory Status: Normal, Stable Level of Consciousness/Mental Status: Can Participate in Eval Pain Control: Adequate, Prn Tx Ordered Nausea/Vomiting Control: Adequate, Prn Tx Ordered Complications Possibly Related to Anesthesia: None Noted
[2018-03-23] MEDS: NORETHINDRONE ACET 5 MG TAB PO SCH (22:18)
[2018-03-23] MEDS: MELATONIN 3 MG TAB PO SCH (22:18)
[2018-03-23] MEDS: PATCH REMOVAL 1 EA PATCH TD SCH (22:27)
[2018-03-24] MEDS: HYDROmorphONE/DILAUDID 4 MG TAB PO PRN ×4 (06:05→22:13)
--- NOTE | 2018-03-24 07:16 | NEUSURGPN ---
Date of Surgery: 03/21/18 Post Op Day: 3 Assessment/Plan: Assessment: POD #3 s/p C6/7 ACDF and C3-7 posterior cervical fusion Plan: -doing well with expected post op interscapular pain that is better today -LLE weakness is better with 5/5 this am-will continue to watch at this time -continue with current pain management plan -pt with some expected swallowing issues, she is eating soft foods at this time , she ate meatloaf and mashed potato yesterday-will continue with ST and watch this at this time -right arm/hand paresthesias improved -post op xrays look good -pt seen and evaluated by Dr Whiting as well this am -continue C Collar -ANAMARIA drain removed yesterday -PT/OT/ST-CPM -activity with assist -call with any questions or concerns -take medications as directed Subjective: Awake and alert. Pt with expected neck pain and some continued but stable swallowing issues. No krishnan/cp/sob/abd or gu complaints. Objective: AAO x 3, PERRLA/EOMI no droop CN 2-12 grossly intact +lt touch 5/5 BUE/BLE = dresssing CDI neck soft and supple ANAMARIA site looks fine Neuro Check Frequency: per routine Urinary Catheter in Place: No - Physician Discussed Patient with .: Henok Patient Seen by : Henok Neurosurgery Physical Exam - Vitals, I&O, Labs I and O 03/23/18 03/24/18 03/25/18 05:59 05:59 05:59 Intake Total 1850 1700 Output Total 1175 895 600 Balance 675 805 -600 Intake: Oral (ml) 1450 1700 IV Intake (ml) 300 IV Infused (ml) 100 ceFAZolin 2 GM/DEXTROSE 100 100 ml @ 200 mls/hr IV Q8HRS LINDA Rx#:[id number] Output: Urine (ml) 1075 800 600 Catheter 175 Toilet 900 800 600 ANAMARIA Drain Output (ml) 100 95 #1 Posterior Neck 100 95 Other: Intake Quantity Yes Sufficient Output Comment Catheter Kaur catheter discontinued. Number of Voids Catheter 1 Toilet 2 2 1 Post Void Residual Scan Volume (ml) Catheter 570 Toilet 570 Vital Signs Temp Pulse Resp BP Pulse Ox 36.7 C 99 16 142/80 H 95 03/24/18 03:49 03/24/18 03:49 03/24/18 03:49 03/24/18 03:49 03/24/18 03:49 Laboratory Results 03/22/18 04:37 03/22/18 04:37 ICD10 Worksheet Patient Problems: Problems Problem Status Onset Neck pain Acute Arthrodesis status Acute Cervical radiculitis Acute Cervical stenosis of spine Acute H/O cervical spinal arthrodesis Acute Low back pain Acute Lumbosacral stenosis Acute
[2018-03-24] MEDS: LIDOCAINE 4%/MENTHOL 1% PATCH TD PRN (08:00)
[2018-03-24] MEDS: METHOCARBAMOL 750 MG TAB PO SCH ×3 (08:01→22:40)
[2018-03-24] MEDS: oxyCODONE IR 5 MG TAB PO PRN ×2 (08:02→18:18)
[2018-03-24] MEDS: ENOXAPARIN 40 MG/0.4 ML SYR SC SCH (08:11)
[2018-03-24] MEDS: SENNOSIDES/DOCUSATE SODIUM TAB PO SCH ×2 (08:12→22:40)
[2018-03-24] MEDS: FLUoxetine 20 MG CAP PO SCH (08:12)
[2018-03-24] MEDS: POLYETHYLENE GLYCOL 3350 17 GM PKT PO PRN (08:12)
[2018-03-24] MEDS: CHOLECALCIFEROL VIT D3 2,000 UNITS TAB/CAP PO SCH (08:13)
[2018-03-24] MEDS: FAMOTIDINE 20 MG TAB PO SCH ×2 (08:13→22:41)
[2018-03-24] MEDS: GABAPENTIN 300 MG CAP PO SCH (08:13)
[2018-03-24] MEDS: PANTOPRAZOLE SODIUM 40 MG TAB PO SCH (08:13)
[2018-03-24] MEDS: VENLAFAXINE XR 150 MG CAP PO SCH (08:13)
[2018-03-24] MEDS: diphenhydrAMINE 25 MG CAP PO PRN (08:46)
[2018-03-24] MEDS: ACETAMINOPHEN 500 MG TAB PO SCH ×3 (10:02→22:40)
--- NOTE | 2018-03-24 12:03 | ASMTCMCOM ---
CM Note CM Note Notes: 03/24/2018 Case Management Note Phone call from Lesli that inpatient rehab is not available. Fax[facility] referral [facility]. Discussed discharge options with patient. Pt agreeable to SNF rehab as well. Faxed referrals to [facility] and all three facilities in [place]. [facility] is first choice. Case Management d/c poc: to be determined pending acceptance by facilities. Case Management to follow. Date Signed: 03/24/2018 12:02 PM Electronically Signed By:Leslie Douglass RN
[2018-03-24] MEDS ORDERED: PATCH REMOVAL 1 EA PATCH TD SCH (12:57)
[2018-03-24] MEDS: GABAPENTIN 400 MG CAP PO SCH ×2 (14:29→22:39)
[2018-03-24] MEDS: SCOPOLAMINE HYDROBROMIDE 1 MG/3 DAYS PATCH TD SCH (14:38)
[2018-03-24] MEDS ORDERED: METOPROLOL TARTRATE 5 MG/5 ML INJ IVP PRN (15:23)
--- NOTE | 2018-03-24 15:26 | HOSPPROG ---
Hospitalist Progress Note Assessment/Plan: The patient is a 62-year-old female with PMH DJD C-spine, C-spine surgery who was admitted C spine DJD, underwent C spine surgery. ASSESSMENT/PLAN: Severe C spine DJD with radiculopathy - s/p C6/7 ACDF and C3-7 posterior cervical fusion POD #3 Pain, improved RLE weakness/numbness -prn analgesics. -Add prn BP medication. -NSG recs appreciated. -ISU. -Activity as tolerated. -PT/OT. VTE prophylaxis: Lovenox. Code Status: Full code Status: Inpatient for greater than 2 midnight stay. Disposition: [facility] with transfer to acute rehab once cleared by NSG and after she gets placement. ____ SUBJECTIVE: Today pt feels okay. +RLE weakness. OBJECTIVE: Physical Exam: General: The patient is a female who is alert and in no acute distress. HEENT: normocephalic, extraocular movements intact, conjunctivae clear. Mucous membranes moist. Neck: C spine collar in place. Abd: soft and nondistended. Musculoskeletal: Normal muscle tone/bulk. Neuro: cranial nerves II XII grossly intact. Psych: Appropriate mood and appropriate affect. Skin: No pallor. No petechiae. Labs/Imaging/Other Tests: MRI C spine - C6-7 herniated disc w/ cervical canal stenosis, severe - possible cord compression C6-7 radiculopathy, severe -bilateral C6-7 slight increased anterolisthesis C4-5 severe R forminal stenosis. C5-6 severe R forminal stenosis. Objective: Vital Signs Temp Pulse Resp BP Pulse Ox 37.0 C 96 16 122/83 H 97 03/24/18 11:30 03/24/18 11:30 03/24/18 11:30 03/24/18 11:30 03/24/18 11:30 Laboratory Results 03/22/18 04:37 03/22/18 04:37 03/23/18 03/24/18 03/25/18 05:59 05:59 05:59 Intake Total 1850 1700 Output Total 1175 895 600 Balance 675 805 -600 PT 13.5 SEC (12.0-15.0) 03/20/18 10:28 INR 1.01 (0.83-1.16) 03/20/18 10:28 ICD10 Worksheet Patient Problems: Problems Problem Status Onset Neck pain Acute Arthrodesis status Acute Cervical radiculitis Acute Cervical stenosis of spine Acute H/O cervical spinal arthrodesis Acute Low back pain Acute Lumbosacral stenosis Acute
[2018-03-24] MEDS ORDERED: GABAPENTIN 400 MG CAP PO SCH (16:00)
[2018-03-24] MEDS: NORETHINDRONE ACET 5 MG TAB PO SCH (22:41)
[2018-03-24] MEDS: MELATONIN 3 MG TAB PO SCH (22:41)
[2018-03-25] MEDS: HYDROmorphONE/DILAUDID 4 MG TAB PO PRN ×3 (02:51→15:35)
[2018-03-25] MEDS: oxyCODONE IR 5 MG TAB PO PRN (06:21)
[2018-03-25] MEDS: MAGNESIUM HYDROXIDE 30 ML UDCUP PO PRN (06:30)
[2018-03-25] MEDS: PATCH REMOVAL 1 EA PATCH TD SCH (06:31)
[2018-03-25 08:12] VITALS: BP 150/80
[2018-03-25] MEDS: GABAPENTIN 400 MG CAP PO SCH ×2 (08:49→15:23)
[2018-03-25] MEDS: METHOCARBAMOL 750 MG TAB PO SCH ×2 (08:49→15:24)
[2018-03-25] MEDS: PANTOPRAZOLE SODIUM 40 MG TAB PO SCH (08:50)
[2018-03-25] MEDS: CHOLECALCIFEROL VIT D3 2,000 UNITS TAB/CAP PO SCH (08:52)
[2018-03-25] MEDS: VENLAFAXINE XR 150 MG CAP PO SCH (08:53)
[2018-03-25] MEDS: FLUoxetine 20 MG CAP PO SCH (08:53)
[2018-03-25] MEDS: SENNOSIDES/DOCUSATE SODIUM TAB PO SCH (08:53)
[2018-03-25] MEDS: ENOXAPARIN 40 MG/0.4 ML SYR SC SCH (08:54)
[2018-03-25] MEDS: FAMOTIDINE 20 MG TAB PO SCH (08:54)
--- NOTE | 2018-03-25 09:27 | NEUSURGPN ---
Assessment/Plan: Assessment: POD #4 s/p C6/7 ACDF and C3-7 posterior cervical fusion Plan: -LLE weakness improving, right posterior arm pain -continue with current pain management plan -Continue with ENHANCED ENVIRONMENTAL OPERATOR, states swallowing is improving -post op xrays look good -continue C Collar -ANAMARIA drain removed -PT/OT/ST-CPM -call with any questions or concerns -Dispo planning, if cleared by PT/ENHANCED ENVIRONMENTAL OPERATOR maybe able to transfer to SNF later today. Will await there evaluations. Subjective: swallowing improving. Some right posterior arm pain. Objective: AAO x 3, +lt touch 5/5 BUE/BLE = Incisions CDI neck soft and supple - Physician Discussed Patient with .: Henok Neurosurgery Physical Exam - Vitals, I&O, Labs I and O 03/24/18 03/25/18 03/26/18 05:59 05:59 05:59 Intake Total 1700 300 Output Total 895 600 Balance 805 -300 Intake: Oral (ml) 1700 300 Output: Urine (ml) 800 600 Toilet 800 600 ANAMARIA Drain Output (ml) 95 #1 Posterior Neck 95 Other: Intake Quantity Yes Yes Sufficient Number of Voids Toilet 2 2 Number of Stools Toilet 0 Vital Signs Temp Pulse Resp BP Pulse Ox 37.1 C 103 H 16 150/80 H 93 03/25/18 08:00 03/25/18 08:00 03/25/18 08:00 03/25/18 08:00 03/25/18 08:00 Laboratory Results 03/22/18 04:37 03/22/18 04:37 ICD10 Worksheet Patient Problems: Problems Problem Status Onset Neck pain Acute Arthrodesis status Acute Cervical radiculitis Acute Cervical stenosis of spine Acute H/O cervical spinal arthrodesis Acute Low back pain Acute Lumbosacral stenosis Acute
[2018-03-25] MEDS: ACETAMINOPHEN 500 MG TAB PO SCH ×2 (10:48→15:24)
--- NOTE | 2018-03-25 15:25 | PDDCSUM ---
Discharge Summary Discharge Summary: Date of Admission: March 18, 2018 Date of Discharge: March 25, 2018 Discharge Diagnoses: Severe C spine DJD with radiculopathy s/p C6/7 ACDF and C3-7 posterior cervical fusion POD #4 Neck Pain, improved RLE weakness/numbness, improved HTN, steroid/pain induced Admission Diagnoses: Severe acute radicular Cervical pain with new disc disease Multiple prior spine surgeries including an upper cervical fusion Hypertension 2/2 pain and anxiety Consultants: RAYNA - Dr. Po Smith and Dr. Ky Whiting [facility] Course: Patient is a 62-year-old female who came to the ED with right arm radicular pain and neuropathic pain which had been worsening over the prior 3-4 days. She had a long history of spine disease with 2 prior lumbar surgeries and a fusion of her upper cervical spine. She had ongoing neck pain and was following up with her neurosurgeon, Dr. Ky Whiting, who told her she would need surgery on her lower cervical spine. Two weeks prior to admission, she tripped and fell. Six days prior to admission, she tripped on an uneven curb and fell. Both injuries resulted in increase neck pain. Patient developed paresthesias in the right upper extremity. Patient underwent cervical spine surgery on March 21, 2018 without complications. Following surgery, patient's mobility , pain, and paresthesias improved. She was transferred to [facility] to continue recovery. Physical Exam: Gen - alert, oriented, in NAD. Neck: in rigid C collar MSK: nl muscle tone/bulk, ambulating. Condition: Fair. Discharged to: [facility] facility/subacute rehab Pertinent tests/labs/imaging: MRI C spine - C6-7 herniated disc w/ cervical canal stenosis, severe - possible cord compression C6-7 radiculopathy, severe -bilateral C6-7 slight increased anterolisthesis C4-5 severe R forminal stenosis. C5-6 severe R forminal stenosis. Medications: Please see med rec form. Special instructions: Return with increasing pain, weakness, numbness or any other concerns. Take your entire course of steroid. Started amlodipine 5mg daily for HTN secondary to being on steroid and from pain. May DC this medication in the future, following recovery. Discuss with PCP first. Follow up: NSG Dr. Mcpherson in 5-[address] Nito after DC from SNF/Rehab. > 30 minutes of total time was spent on counseling and coordination of care for this patient's discharge.
--- NOTE | 2018-03-25 15:25 | PDIAF ---
- Diagnosis Diagnosis: right sided weakness, paresthesias, neck pain, s/p neck surgery Code Status: Full Code - Medication Management Discharge Medications: electronically signed and located in the Home Medication List. - Orders Services needed: Registered Nurse, Certified [employer], Physical Therapy, Occupational Therapy Isolation Type: None Diet Recommendation: no restrictions on diet Diet Texture: Regular Texture Diet, Thin Liquids, Meds Whole w/Liquids Wound Care Instructions: Follow up with Neurosurgery within 1 week for wound check Activity/Weight Bearing Restrictions: Wear rigid C spine collar at all times. Additional Instructions: Return with increasing pain, weakness, numbness or any other concerns. Take your entire course of steroid. Started amlodipine 5mg daily for HTN secondary to being on steroid and from pain. May DC this medication in the future, following recovery. Discuss with PCP first. - Follow Up Care Current Providers and Referrals: Oumou Beauchamp MD [Primary Care Provider] - 3 days of d/c SNF/Rehab Laurent Whiting MD [Medical Doctor] - 5-7 days, call for appt.
--- NOTE | 2018-03-25 15:39 | ASMTLACE ---
YUSUF Length of stay for Answers: 7-13 days current admission Acuity / Level of Answers: Yes Care: Did the patient have an inpatient admission? Comorbidities - select Answers: Coronary Artery Disease all that apply Opioid dependence / Chronic pain Other Notes: HTN # of Emergency department Answers: 1-2 visits in the last 6 months Social determinants Answers: Mental health diagnosis (anxiety, depression, pers onality disorders, etc.) Score: 19 Date Signed: 03/25/2018 03:38 PM Electronically Signed By:NGHIA Hylton
--- NOTE | 2018-03-25 16:21 | ASMTCMCOM ---
CM Note CM Note Notes: Today [employer] authorized SNF. Pt chooses [facility]. Pt partner Sonia to transport. Orders sent in [employer]. WILL Reilly to call report. Date Signed: 03/25/2018 04:20 PM Electronically Signed By:NGHIA Hylton
[2018-03-26] MEDS ORDERED: amLODIPine BESYLATE 5 MG TAB PO SCH (09:00)
== END 2018-03-25 17:08 | DRG 454 ==
LOC: OBSVTOIN 18:13 → F3N 19:36
PROVIDERS: ADMIT Internal Medicine; ATTEND Internal Medicine
DX: M50.123 Cervical disc disorder at C6-C7 level with radiculopathy (principal); M50.03 Cervical disc disorder with myelopathy, cervicothoracic region; M96.0 Pseudarthrosis after fusion or arthrodesis; M50.023 Cervical disc disorder at C6-C7 level with myelopathy; I10 Essential (primary) hypertension; G62.9 Polyneuropathy, unspecified; F32.9 Major depressive disorder, single episode, unspecified; Z98.1 Arthrodesis status
CPT/HCPCS: 92526-GN; 92610-GN; 96374; 97116-GP; 97140-GO; 97161-GP; 97164-GP; 97166-GO; 97530-GO; 97530-GP; 97535-GO; C1713; J0330; J0690; J1100; J1170; J1200; J1644; J1650; J1885; J2250; J2370; J2405; J2704; J2930; J3010; J3360; J3420; J7512

== ENCOUNTER → 2018-04-28 | Outpatient (CLI) | payer OTHER | LOC: FIMAGING 11:50 | PROVIDERS: ATTEND Physician Assistant | DX: Z98.1 Arthrodesis status (principal) ==

== ENCOUNTER 2018-06-03 07:03 | Emergency (ER) | payer OTHER ==
--- NOTE | 2018-06-03 07:44 | EDPHY ---
H & P Time Seen by Provider: 06/03/18 07:41 HPI/ROS: Chief complaint. Dizzy HPI. 62-year-old female presents with dizziness for the past 2 days. It began after doing physical therapy where she was having manipulation of her neck and some dried kneeling. She then turned her head and felt a tightness or pop on the left side of her neck. She had headache. She has had nystagmus. PCP tried Greg maneuver x2 without relief. The patient has a sense of movement and spinning that is worse with head movement. Nausea but no vomiting or diarrhea. No chest pain or shortness of breath. No abdominal pain. She had a posterior cervical fusion March 21 2018. Stable C-spine x-ray on 2018. She had significant radiculopathy prior to surgery. Denies any radiculopathy or arm weakness. No fever. ROS 10 systems were reviewed and negative with the exception of the elements mentioned in the history of present illness Past Medical/Surgical History: Coronary artery disease, anxiety, depression, hypertension, neuropathy, C-spine disease, spine fusions Social History: , nonsmoker, no alcohol Smoking Status: Never smoked Physical Exam: General Appearance: Alert pleasant well-developed female mild distress vitals are stable Eyes: Pupils equal round reactive. No nystagmus. ENT, Mouth: Mucous membranes are moist. Respiratory: There are no retractions, lungs are clear to auscultation. Cardiovascular: Regular rate and rhythm. Gastrointestinal: Abdomen is soft and nontender, no masses, bowel sounds normal. Neurological: Awake and alert, sensory and motor exams grossly normal. Skin: Warm and dry, no rashes. Musculoskeletal: Neck it is restrained and soft collar. Some tenderness to the left side of her neck. Extremities symmetrical, full range of motion. Psychiatric: Patient is oriented X 3, there is no agitation. Constitutional: Initial Vital Signs Temperature (C) 36.8 C 06/03/18 07:08 Heart Rate 102 H 06/03/18 07:08 Respiratory Rate 16 06/03/18 07:08 Blood Pressure 152/100 H 06/03/18 07:08 O2 Sat (%) 97 06/03/18 07:08 O2 Delivery Mode Room Air Allergies/Adverse Reactions: nalbuphine HCl [From Nubain] Allergy (Intermediate, Verified 06/03/18 07:10) Other-Enter Comments promethazine HCl [From Phenergan] Allergy (Intermediate, Verified 06/03/18 07:10 ) Anxiety cefaclor Allergy (Unknown, Unverified 06/03/18 07:10) Hives nalbuphine HCl Allergy (Unknown, Uncoded 06/03/18 07:10) Other-Enter Comments promethazine HCl Allergy (Unknown, Uncoded 06/03/18 07:10) Anxiety Home Medications: Medication Instructions Recorded Fluoxetine HCl [Prozac 40 mg] 40 mg PO DAILY 01/09/15 Cyanocobalamin [Vitamin B12 1,000 mcg IM Q30D 08/23/15 1000MCG/ML (*)] Pantoprazole Sodium [Protonix 40mg 40 mg PO DAILY 06/05/16 (*)] Venlafaxine Xr [Effexor Xr] 150 mg PO DAILY 10/27/17 Acetaminophen/ASA/Caffeine 1 each PO DAILY PRN 03/18/18 [Excedrin Tablet (*)] Cholecalciferol Vit D3 [Vitamin D3 2,000 units PO DAILY 03/18/18 (*)] Estradiol 0.05 mg TD TUFR 03/18/18 Lidocaine [Lidoderm] 1 each TP DAILY PRN 03/18/18 Norethindrone Acetate 2.5 mg PO HS 03/19/18 Acetaminophen [Tylenol ES 500 mg 1,000 mg PO TID tab 03/25/18 (*)] Enoxaparin [Lovenox 40 MG (*)] 40 mg SC DAILY syr 03/25/18 Gabapentin [Neurontin 400 MG (*)] 800 mg PO TID cap 03/25/18 HYDROmorphone HCL [Dilaudid 4 mg 4 mg PO Q4HRS PRN tab 03/25/18 (*)] Melatonin [Melatonin 3 MG (*)] 3 mg PO HS tab 03/25/18 Methocarbamol [Robaxin 750 mg (*)] 1,500 mg PO TID tab 03/25/18 Ondansetron HCl Pf [Zofran 4 mg 4 mg IVP Q4 PRN vial 03/25/18 Inj (*)] Ondansetron Odt [Zofran Odt 4 mg 4 - 8 mg PO Q6HRS PRN tab 03/25/18 (*)] Patch Removal 1 ea TD DAILY21 patch 03/25/18 Patch Removal 1 ea TD Q72H patch 03/25/18 Polyethylene Glycol 3350 [Miralax 17 gm PO DAILY PRN pkt 03/25/18 17 gm (*)] Sennosides/Docusate Sodium 1 - 2 tab PO BID tab 03/25/18 [Senokot-S] amLODIPine BESYLATE [Norvasc 5 mg 5 mg PO DAILY tab 03/25/18 (*)] oxyCODONE IR [Oxycodone Ir (*)] 5 - 10 mg PO QID PRN #0 03/25/18 Meclizine HCl 25 mg PO Q6-8PRN PRN #14 tablet 06/03/18 Medical Decision Making - Diagnostics EKG Interpretation: EKG interpreted by me shows normal sinus rhythm. First-degree AV block. Left axis deviation. No significant ST elevation or depression. No arrhythmia. The rate is 87. No significant change from previous EKG July 2015 Imaging Results: Imaging Impressions Brain MRI 06/03/18 07:59 Impression: 1. Mild atrophy. 2. No acute hemorrhage, definite acute infarct, hydrocephalus or mass effect. 3. Several nonspecific hyperintense T2/FLAIR signal abnormalities in the white matter of bilateral cerebral hemispheres. Differential diagnosis includes moderate microvascular ischemic gliosis, versus post-infectious/post- inflammatory sequela. 4. Mild right maxillary sinusitis. 5. No enhancing lesions. Findings and recommendations discussed with Emergency Department physician, Durga Vazquez at 1424 hour, 06/03/2018. Final report concurs with initial preliminary interpretation. Neck MRA 06/03/18 07:59 Impression: MRA of the cervical carotids and vertebrals demonstrate no evidence of flow-limiting stenosis, occlusion, or dissection. Measurements of carotid stenosis is based on the residual internal carotid diameter with [place] Symptomatic Carotid Endarterectomy Trial (NASCET) based stenosis levels. Findings and recommendations discussed with Emergency Department physician, Durga Vazquez at 1409 hour, 06/03/2018. Final report concurs with initial preliminary interpretation. Cervical Spine X-Ray 06/03/18 08:00 Impression: Stable cervical spine with fusion from C3 through C7 as above, with no acute findings. If there is persistent pain or neurologic deficit, consider CT or MRI. C-spine fusion is normal on plain x-ray Brain MRI, neck MRA the reviewed by me and discussed with are nonacute Procedures: IV normal saline. Meclizine orally ED Course/Re-evaluation: Re-evaluation at 2:40 p.m. Patient is stable. Patient and I discussed imaging and lab results. we discussed treatment plan including criteria for return and importance of follow-up and further evaluation. She expresses understanding and agreement Differential Diagnosis: I considered acute coronary syndrome, cardiac as well as neurologic causes of her dizziness. No evidence for hardware disruption in the cervical spine. - Data Points Laboratory Results: Laboratory Results 06/03/18 07:15 06/03/18 07:15 06/03/18 06/03/18 07:15 07:15 WBC 6.59 10^3/uL 10^3/uL (3.80-9.50) RBC 4.59 10^6/uL 10^6/uL (4.18-5.33) Hgb 14.6 g/dL g/dL (12.6-16.3) Hct 44.9 % % (38.0-47.0) MCV 97.8 fL fL (81.5-99.8) MCH 31.8 pg pg (27.9-34.1) MCHC 32.5 g/dL g/dL (32.4-36.7) RDW 12.4 % % (11.5-15.2) Plt Count 282 10^3/uL 10^3/uL (150-400) MPV 9.6 fL fL (8.7-11.7) Neut % (Auto) 68.0 % % (39.3-74.2) Lymph % (Auto) 22.9 % % (15.0-45.0) [place] % (Auto) 6.4 % % (4.5-13.0) Eos % (Auto) 1.5 % % (0.6-7.6) Baso % (Auto) 0.6 % % (0.3-1.7) Nucleat RBC Rel Count 0.0 % % (0.0-0.2) Absolute Neuts (auto) 4.48 10^3/uL 10^3/uL (1.70-6.50) Absolute Lymphs (auto) 1.51 10^3/uL 10^3/uL (1.00-3.00) Absolute Monos (auto) 0.42 10^3/uL 10^3/uL (0.30-0.80) Absolute Eos (auto) 0.10 10^3/uL 10^3/uL (0.03-0.40) Absolute Basos (auto) 0.04 10^3/uL 10^3/uL (0.02-0.10) Absolute Nucleated RBC 0.00 10^3/uL 10^3/uL (0-0.01) Immature Gran % 0.6 % % (0.0-1.1) Immature Gran # 0.04 10^3/uL 10^3/uL (0.00-0.10) Sodium 139 mEq/L mEq/L (135-145) Potassium 4.6 mEq/L mEq/L (3.5-5.2) Chloride 107 mEq/L mEq/L (97-110) Carbon Dioxide 26 mEq/l mEq/l (22-31) Anion Gap 6 mEq/L mEq/L (6-14) BUN 15 mg/dL mg/dL (7-23) Creatinine 0.7 mg/dL mg/dL (0.6-1.0) Estimated GFR > 60 Glucose 119 mg/dL H mg/dL (70-100) Calcium 9.0 mg/dL mg/dL (8.5-10.4) Medications Given: Discontinued Medications Sodium Chloride (Ns) 1,000 mls @ 0 mls/hr IV EDNOW ONE; Wide Open PRN Reason: Protocol Stop: 06/03/18 07:59 Last Admin: 06/03/18 08:05 Dose: 1,000 mls Lorazepam (Ativan Injection) 1 mg IVP EDNOW ONE Stop: 06/03/18 10:56 Last Admin: 06/03/18 10:58 Dose: 1 mg Meclizine HCl (Meclizine Hcl) 25 mg PO EDNOW ONE Stop: 06/03/18 08:00 Last Admin: 06/03/18 08:05 Dose: 25 mg Meclizine HCl (Meclizine Hcl) 25 mg PO EDNOW ONE Stop: 06/03/18 14:14 Last Admin: 06/03/18 14:15 Dose: 25 mg Departure - Departure Disposition: Home, Routine, Self-Care Clinical Impression: Vertigo Condition: Good Instructions: Vertigo (ED) Additional Instructions: Drink plenty of fluids stay hydrated. Meclizine 1 pill every 6-8 hours as needed for dizziness Return for worsening symptoms. Re-evaluation by Dr. Beauchamp in 2-3 days if not improved Referrals: Oumou Beauchamp MD [Primary Care Provider] - 2-3 days, if not improved Prescriptions: Meclizine HCl 25 mg PO Q6-8PRN PRN #14 tablet PRN Reason: Dizziness
--- NOTE | 2018-06-03 07:46 | CPEKG ---
Test Reason : OPEN Blood Pressure : / mmHG Vent. Rate : 087 BPM Atrial Rate : 087 BPM P-R Int : 220 ms QRS Dur : 091 ms QT Int : 353 ms P-R-T Axes : 002 -34 012 degrees QTc Int : 425 ms Sinus rhythm Prolonged IN interval Inferior infarct, old Anterior infarct, old Lateral leads are also involved Confirmed by Durga Vazquez ([id number]) on 06/03/2018 7:46:09 AM Referred By: PHYSICIAN ED Confirmed By:Durga Vazquez
[2018-06-03] MEDS ORDERED: NS 1,000 ML IV ONE (07:58)
[2018-06-03] MEDS ORDERED: MECLIZINE HCL 25 MG TAB PO ONE ×2 (07:59→14:13)
[2018-06-03 08:07] LABS: PLATELET COUNT 282 10^3/uL (150-400)
[2018-06-03] MEDS ORDERED: GADOBUTROL 10 ML VIAL IVP ONE (09:37)
[2018-06-03] MEDS ORDERED: LORazepam 2 MG/ML INJ IVP ONE (10:55)
[2018-06-03 15:01] VITALS: BP 155/91
== END 2018-06-03 15:08 | disposition home or self-care (01) ==
DX: R42 Dizziness and giddiness (principal); I10 Essential (primary) hypertension; F41.9 Anxiety disorder, unspecified; E86.9 Volume depletion, unspecified
CPT/HCPCS: 96374; A9585; J2060

== ENCOUNTER → 2018-08-19 | Outpatient (CLI) | payer OTHER | LOC: FIMAGING 14:41 | PROVIDERS: ATTEND Physician Assistant | DX: Z98.1 Arthrodesis status (principal) ==

== ENCOUNTER → 2018-08-23 | Outpatient (CLI) | payer OTHER | LOC: EMCIMAGING 11:32 → EDSTATUS 11:33 | PROVIDERS: ATTEND Nurse Practitioner | DX: M16.12 Unilateral primary osteoarthritis, left hip (principal) | CPT/HCPCS: 73502-PN ==